=== PATIENT | female | born 1985 | race Caucasian/White ===

== ENCOUNTER 2022-08-31 09:24 | Emergency (ER) | payer MEDICAID, SELFPAY ==
[2022-08-31 09:55] VITALS: BP 136/80; PULSE 98; RESP 20; TEMP 37; O2SAT 100; BMI 16.4
--- NOTE | 2022-08-31 09:56 | EXP.UTC ---
Discharge Plan Disposition Patient Disposition: Home, Self-Care Condition: Good Prescriptions Prescriptions: New azithromycin [Zithromax] 250 mg tablet 250 mg PO UD DOSE PK Qty: 6 0RF Rx Instructions: Take two (2) tablets today, then one (1) tablet days #2 thru #5 benzonatate [benzonatate] 100 mg capsule 100 mg PO TIDP PRN (Reason: Cough) Qty: 30 0RF methylprednisolone 4 mg Tablets,Dose Pack 4 mg PO DIRECTED Qty: 21 0RF Referrals Follow up/Referrals: Provider,Referral, MD [Primary Care Provider] - See instructions Activity Restrictions/Add. Instructions Additional Instructions/Restrictions: Drink plenty of fluids. Take tylenol or ibuprofen for pain or fever. Take the medications as directed. Follow up with your regular doctor. GO TO THE ER FOR ANY WORSENING SYMPTOMS Clinical Impressions Clinical Impression: Acute bronchitis Stand Alone Forms Stand Alone Forms: Work/School Release Instructions Patient Instructions: DI for Acute Bronchitis Discharge ED Provider: Shaq Hinkle [facility] General Stated complaint: Chest Congestion Drainage Time Seen by Provider: 08/31/22 09:56 History of Present Illness Provider Complaint: She states that for the past 2 days she has had chest congestion, sinus congestion, and malaise. She denies any fever or chills. She has taken a home covid-19 test last night that was negative. She refuses a pcr covid-19 test here today. Related Data Previous Rx's Medication Instructions Recorded azithromycin 250 mg tablet 250 mg PO UD DOSE PK #6 tabs 08/31/22 (Zithromax) benzonatate 100 mg capsule 100 mg PO TIDP PRN Cough #30 caps 08/31/22 methylprednisolone 4 mg tablets in 4 mg PO DIRECTED #21 tabs 08/31/22 a dose pack Allergies Allergy/AdvReac Type Severity Reaction Status Date / Time Sulfa (Sulfonamide Allergy Mild Verified 08/31/22 10:02 Antibiotics) [facility] Disclaimer: The information contained in this section may have been updated after the patient was seen, as this information can be updated by other users. Social History Smoking Status: Never smoker alcohol intake: never current occupational status: employed Travel in the last 8 weeks: None ROS Obtained: Yes All systems reviewed & no additional complaints except as documented Constitutional Constitutional: Reports chills and Reports fever(s) Eyes Eyes: Denies eye discharge ENT Ears, Nose, Mouth, and Throat: Reports as per HPI Cardiovascular Cardiovascular: Denies chest pain Respiratory Respiratory: Denies chest congestion and Reports cough Gastrointestinal Gastrointestingal: Reports nausea; Denies abdominal pain, constipation, cramping, diarrhea or vomiting Musculoskeletal Musculoskeletal: Denies arthralgias Integumentary/Breasts Skin/Breast: Denies rash Neurologic Neurologic: Denies paresthesias Physical Exam General General appearance: alert and in no apparent distress Head Head exam: atraumatic, normocephalic and normal inspection Eye Eye exam: Present normal appearance, PERRL and EOMI ENT ENT exam: Present normal exam, normal oropharynx, mucous membranes moist, TM's normal bilaterally and normal external ear exam Neck Neck exam: Present normal inspection, full ROM and trachea midline; Absent meningismus or lymphadenopathy Chest Chest inspection: Present normal inspection and symmetric chest wall rise; Absent tenderness Respiratory Respiratory exam: Present normal lung sounds bilaterally; Absent respiratory distress Cardiovascular Cardiovascular exam: Present regular rate and normal rhythm; Absent JVD Abdominal Exam Abdominal exam: Present soft and normal bowel sounds; Absent distention, tenderness or guarding Extremities Exam Extremities exam: Present normal inspection, full ROM and normal capillary refill; Absent calf tenderness Back Exam Back exam: Present normal inspection; Absent
[2022-08-31 10:08] LABS: UTC Strep Screen (Rapid) Negative (Negative)
[2022-08-31 10:49] VITALS: BP 136/80; PULSE 98; RESP 20; TEMP 37; O2SAT 100
== END 2022-08-31 10:48 | disposition home or self-care (01) ==
PROVIDERS: Emergency Provider Nurse Practitioner Family
DX: J20.9 Acute bronchitis, unspecified (principal)
CPT/HCPCS: 87880; 99212; 99213; G0463

== ENCOUNTER 2025-06-10 19:49 | Emergency (ER) | payer MEDICAID, SELFPAY ==
--- NOTE | 2025-06-10 20:00 | ED_ITS ---
<Statement entered by Michael Cali MD - 06/11/25 12:20> I was consulted by the SARAH, and we discussed the complexity of the problems being addressed. I approve the treatment and management plan for this patient's care in the emergency department, thus performing a substantive portion of the medical decision making. Michael Cali MD Discharge Plan Prescriptions Prescriptions: No Action gabapentin 800 mg tablet PO Patient Comments: TAKE 1 TABLET BY MOUTH TWICE DAILY buprenorphine-naloxone 8-2 mg tablet, sublingual sublingual Patient Comments: PLACE 1/2 (ONE-HALF) TABLET UNDER THE TONGUE ONCE DAILY escitalopram oxalate 5 mg tablet PO Patient Comments: TAKE 1 TABLET BY MOUTH ONCE DAILY FOR ANXIETY amoxicillin 500 mg tablet 500 mg PO BID Qty: 20 0RF Referrals Follow up/Referrals: Celine Mortensen MD [Primary Care Provider, Family Practice] - See instructions Print Language Print Language: Luxembourgish Discharge ED Provider: Michael Cali General Adult HPI General Stated complaint: AO 06/10 Nail in Left Foot/ Nail not in foot Time Seen by Provider: 06/10/25 19:59 History of Present Illness HPI narrative: 39-year-old female presents to the ED today for complaint of stepping on a nail that went through her shoe into her foot. She did pull it out. She does need a tetanus shot. She has allergies to sulfa medicines. Related Data Home Medications ?Medication ?Instructions ?Recorded ?Confirmed buprenorphine 8 mg-naloxone 2 mg tab sublingual 05/15/25 sublingual tablet escitalopram oxalate 5 mg tablet mg PO 05/15/25 gabapentin 800 mg tablet mg PO 05/15/25 05/15/25 Previous Rx's ?Medication ?Instructions ?Recorded amoxicillin 500 mg tablet 500 mg PO BID #20 tabs 05/15 Allergies Allergy/AdvReac Type Severity Reaction Status Date / Time Sulfa (Sulfonamide Allergy Mild Unknown Verified 05/15/25 17:45 Antibiotics) allergy reaction [facility] Disclaimer: The information contained in this section may have been updated after the patient was seen, as this information can be updated by other users. Social History Smoking Status: Never smoker alcohol intake: never current occupational status: employed Travel in the last 8 weeks?: None ROS Obtained: Yes Systems reviewed as appropriate & no additional complaints except as documented Constitutional Constitutional: Reports as per HPI Physical Exam General General appearance: alert and in no apparent distress Head Head exam: normocephalic Eye Eye exam: Present PERRL and EOMI ENT ENT exam: Present normal oropharynx and mucous membranes moist Neck Neck exam: Present full ROM and trachea midline Respiratory Respiratory exam: Present normal lung sounds bilaterally Cardiovascular Cardiovascular exam: Present regular rate, normal rhythm, normal heart sounds, +S1 and +S2 Extremities Exam Extremities exam: Present full ROM and tenderness Neurological Exam Neurological exam: Present alert and oriented X3 Skin Skin exam: Present warm and dry Medical Decision Making Medical Records Screening: Per USPSTF and CDC recommendations, given the prevalence of disease in our region, it is our hospital?s policy to screen for HIV and viral Hepatitis for all patients aged 18 and over and those with ongoing risk factors. [place] Inquiry Pt receiving controlled substance: No [place] was queried for this patient: No Orders (Tests/Meds): ED MEDICATIONS Generic Name Dose Route Start Last Admin Trade Name Freq PRN Reason Stop Dose Admin Clindamycin HCl 300 mg 06/10/25 20:02 Clindamycin 150mg Capsule PO 06/10/25 20:03 ONCE ONE Tetanus/Reduced Diphtheria/Acell Pertussis 0.5 ml 06/10/25 19:59 Tet/Diphth/Pert-Adult 0.5ml Syringe IM 06/10/25 20:00 .ONCE ONE Medical Decision Narrative: patient is a 39-year-old female presenting to the emergency department for evaluation of stepping on a nail. Patient is hemodynamically stable and nontoxic-appearing upon arrival, afebrile. Differential diagnosis includes Pseudomonas infection, strep infection from the wound. Will give patient a tetanus shot and clindamycin. Wound will be cleaned out here in the ED. Patient will be sent home with antibiotic. Patient safe for discharge home. Critical Care Critical Care Time Critical Care Time: No
[2025-06-10 20:01] VITALS: BP 154/107; PULSE 95; RESP 18; TEMP 36.7; O2SAT 97; BMI 24.0
--- OUTSIDE RECORDS SUMMARY | 2025-06-10 20:10 | XMS_ITS | Encounter Summary ---
Author Organization [employer] ([place], [place], [place], [place], [place]) Address [address] [place] [address] Care Team Providers Care Coater Smoking Pipe Name Role Phone Unavailable Primary Care Provider Unavailabl e Encounter Details Date Type Department Care Team (Late st Contact Info) Description 08/29/2019 Transcribed Document [facility] [place] [facility] [place] [address] ProviderAwa MD [address] [place], [place] [id number] Social History Tobacco Use Types Packs/Day Years Used Date Smoking Tobacco: Never Assessed Comments Unknown Sex and Gender Information Value Date Recorded Sex Assigned at Not on file Legal Sex Female 6:47 PM CDT Gender Identity Not on file Sexual Orientation Not on file documented as of this encounter Miscellaneous Notes * Cerner Conversion Note - Historical ProviderMD - 08/29/2019 7:19 PM HOCKEY SCOUT Electronically signed by [facility], [facility] Conversion Truck Terminal Manager Cerner at 10/29/2022 5:00 PM CDT documented in this encounter Plan of Treatment Not on file documented as of this encounter Visit Diagnoses Not on filedocumented in this encounter
--- OUTSIDE RECORDS SUMMARY | 2025-06-10 20:10 | XMS_ITS | Encounter Summary ---
Author Organization [employer] ([place], [place], [place], [place], [place]) Address [address] [place] [address] Care Team Providers Care Superintendent Horticulture Name Role Phone Unavailable Primary Care Provider Unavailabl e Encounter Details Date Type Department Care Team (Late st Contact Info) Description 02/20/2020 Transcribed Document [facility] Family Medicine [facility] [place] [address] ProviderAwa MD [address] [place], [place] [id number] Social History Tobacco Use Types Packs/Day Years Used Date Smoking Tobacco: Never Assessed Comments Unknown Sex and Gender Information Value Date Recorded Sex Assigned at Not on file Legal Sex Female 6:47 PM CDT Gender Identity Not on file Sexual Orientation Not on file documented as of this encounter Miscellaneous Notes * Cerner Conversion Note - Historical ProviderMD - 02/20/2020 5:00 AM CDT Chart Check - Review Order Profile Entered On: 02/20/2020 3:14 EDT Performed On: 02/20/2020 5:00 EDT by MAREK ALMONTE RN Chart Check Powerplans Initiated/Discontinued as Appropriate : Yes All Active Orders Reviewed : Yes MAREK ALMONTE RN - 02/20/2020 3:14 EDT documented in this encounter Plan of Treatment Not on file documented as of this encounter Visit Diagnoses Not on filedocumented in this encounter
--- OUTSIDE RECORDS SUMMARY | 2025-06-10 20:10 | XMS_ITS | Clinical Summary ---
Author Organization [facility] Address [address] [place] [address] Care Team Providers Care Certified Scrum Master Name Role Phone Aneesh Smith MD, [place] Primary Care Provider [phone] Social History Tobacco Use Types Packs/Day Years Used Date Smoking Tobacco: Never Assessed Abuse Screen Answer Date Recorded Unsafe at Home or Work/School Not on file Feels Threatened by Someone? Not on file 05/2023 Does Anyone Keep You from Co ntacting Others or Doint Things Outside the Home? Not on file 04/20/2023 Physical Sign of Abuse Present Not on file 1 Housing Stability Answer Date Recorded Current Living Arrangements Not on file 04/10 Potentially Unsafe Housing Conditions Not on michelle e 04/20/2023 Family and Community Support Answer Tj e Recorded Help with Day-to-Day Activities Not on file 04/20/2023 Lonely or Isolated Not on file 04/20/2023 Employment Answer Date Recorded Do you want help finding or keeping work or a malini b? Not on file 04/20/2023 Disabilities Answer Date Recorded Concentrating, Remembering, or Making Decisions Difficulty Not on file 04/20/2023 Doing Errands Independently Difficulty Not on fi le 04/20/2023 Education Answer Date Recorded Help with school or training? Not on file Preferred Language Not on file 04/20/2023 Comments Unknown Sex and Gender Information Value Date Recorded Sex Assigned at Not on file Legal Sex Female 12:03 PM EDT Gender Identity Not on file Sexual Orientation Not on file Last Filed Vital Signs Vital Sign Reading Time Taken Comments Blood Pressure 110/76 06/04/2013 1:53 PM EST Pulse 80 06/04/2013 1:53 PM EST Temperature 36.6 C (97.8 F) 06/04/2013 1:53 PM EST Respiratory Rate - - Oxygen Saturation - - Inhaled Oxygen Concentration - - Weight 65.1 kg (143 lb 9.7 oz) 06/04/2013 1:53 P M EST Height 162.6 cm (5' 4 ) 06/04/2013 1:53 PM EST Body Mass Index 24.65 06/04/2013 1:53 PM EST Plan of Treatment Health Maintenance Due Date Last Done Comments Annual Gynecologic Pelvic an d Breast Exam 1985 ANNUAL PHYSICAL 09/09/2016 HEPATITIS C SCREENING 09/09/2016 INFLUENZA VACCINE 02/08/2025 07/26/2018 TDAP/TD VACCINES (2 - Td or Tdap) 11/06/2027 11/05/2017, 04/06/2007 Pneumococcal Vaccine 0-49 Aged Out No longer eligible based on patient's age to complete [place] [address] Care Teams Certified Scrum Master Relationship Specialty Start Date End Date Jada Melendrez MD [address] [facility] [address] [place], [place] [id number] PCP - General Family Medicine 08/30/16
--- OUTSIDE RECORDS SUMMARY | 2025-06-10 20:10 | XMS_ITS | Encounter Summary ---
Author Organization [employer] ([place], [place], [place], [place], [place]) Address [address] [place] [address] Care Team Providers Care Field Machinist Name Role Phone Unavailable Primary Care Provider Unavailabl e Encounter Details Date Type Department Care Team (Late st Contact Info) Description 02/16/2020 Transcribed Document [facility] [place] [facility] [address] ProviderAwa MD [address] [place], [place] [id number] Social History Tobacco Use Types Packs/Day Years Used Date Smoking Tobacco: Never Assessed Comments Unknown Sex and Gender Information Value Date Recorded Sex Assigned at Not on file Legal Sex Female 6:47 PM CDT Gender Identity Not on file Sexual Orientation Not on file documented as of this encounter Miscellaneous Notes * Cerner Conversion Note - Historical ProviderMD - 02/16/2020 5:43 PM CDT Admission Data, OB Entered On: 02/16/2020 17:48 EDT Performed On: 02/16/2020 17:43 EDT by MIGEL AC RN Advance Directive Patient has Advance Directive *Q : No, patient refuses Advance Directive information MIGEL AC RN - 02/16/2020 17:43 EDT Height and Weight Height Source : Stated Height Entry Format : [place] Height, Feet : 5 ft(Converted to: 152 cm, 60 Inch) Clinical Height : 162.56 cm Height, Inches : 4 Inch(Converted to: 0 ft 4 Inch, 10.16 cm) Weight Source : Standing scale Weight Entry Format : [place] Weight, Pounds : 204 lb Clinical Dosing Weight : 92.73 kg Body Surface Area (BSA) : 1.97 m2 Body Mass Index : 35.1 kg/m2 (HI) [place] Body Weight (IBW) : 54.3 kg MIGEL AC RN - 02/16/2020 17:43 EDT Health Histories Smoking Status : Never (less than 100 in lifetime; none in last 30 days) Smokeless Tobacco Status : Never MIGEL AC RN - 02/16/2020 17:43 EDT Social History (As Of: 02/16/2020 17:48:26 EDT) Gestational Age Gestational Age Person Gestational Age At : 39 weeks 3 days Method : Comment : Tetanus Immunization Status Previous Tetanus Immunizations : Previous Tetanus Immunizations tetanus/diphtheria/pertussis, acel(Tdap): 0.5 mL (11/05/17 16:10:00) Tetanus Immunization : Unknown MIGEL AC RN - 02/16/2020 17:43 EDT Influenza Vaccine Asmt, Adult Previous Vaccines from Immunization Schedule : Previous Vaccines and Immunizations tetanus/diphtheria/pertussis, acel(Tdap): 0.5 mL (11/05/17 16:10:00) Influenza Immunization, Current Season : Outside of influenza season MIGEL AC RN - 02/16/2020 17:43 EDT Pneumococcal Vaccine Previous Vaccines from Immunization Schedule : Previous Vaccines and Immunizations tetanus/diphtheria/pertussis, acel(Tdap): 0.5 mL (11/05/17 16:10:00) Pneumonia Immunization Received : No Pneumococcal Risk Assessment < Age 65 : None MIGEL AC RN - 02/16/2020 17:43 EDT Order Details Transport Mode Order Detail : Ambulatory Isolation Precautions Order Detail : Standard Precautions Order Detail : 1 IV Order Detail : 0 Oxygen Order Detail : 0 Nurse Collect Order Detail : 1 Lift/Transfer : Independent Central Line Order Detail : No Room Service : Appropriate Arterial Line : No MIGEL AC RN - 02/16/2020 17:43 EDT Vital Measurements Temperature Source : Oral Temperature Mode : Fahrenheit Temperature, Fahrenheit : 98.1 Deg F Clinical Temperature, C : 36.7 Deg C Pulse Method : Non-Invasive BP Device Pulse Source : Brachial, Right Peripheral Pulse Rate : 90 bpm Pulse Rhythm : Regular Respiratory Rate : 16 Breaths/Min Blood Pressure Location : Arm, right upper Blood Pressure Source : Non-Invasive BP Device Blood Pressure Position : Sitting Systolic Blood Pressure : 142 mmHg (HI) Diastolic Blood Pressure : 90 mmHg MIGEL AC RN - 02/16/2020 17:43 EDT Infectious Disease History Has the patient ever been tested for COVID-19? : Yes, Patient stated results Negative Date of COVID-19 test known? : Yes Date of COVID-19 Test : 02/14/2020 EDT Does patient have symptoms of COVID-19? : No COVID19 Screening : No Experiencing Infectious Disease Symptoms : No symptoms Physical contact outside [place] in the last 30 days : No Infectious Disease History : Chicken pox/Shingles, Herpes Tuberculosis Symptoms : None MIGEL AC RN - 02/16/2020 17:43 EDT [place] Suicide Severity Rating Scale (C-SSRS) CSSRS Past Month Wish to be : No CSSRS Past Month Suicidal Thoughts : No CSSRS Lifetime Suicide Behavior : No Suicide Severity Rating Score : 0 Suicide Severity Rating : No Additional Care Required at this time MIGEL AC RN - 02/16/2020 17:43 EDT documented in this encounter Plan of Treatment Not on file documented as of this encounter Visit Diagnoses Not on filedocumented in this encounter
--- OUTSIDE RECORDS SUMMARY | 2025-06-10 20:10 | XMS_ITS | Encounter Summary ---
Author Organization [employer] ([place], [place], [place], [place], [place]) Address [address] [place] [address] Care Team Providers Care Technical Support Manager Name Role Phone Unavailable Primary Care Provider Unavailabl e Encounter Details Date Type Department Care Team (Late st Contact Info) Description 02/19/2020 Transcribed Document [facility] [place] [facility] [address] ProviderAwa MD [address] [place], [place] [address] Social History Tobacco Use Types Packs/Day Years Used Date Smoking Tobacco: Never Assessed Comments Unknown Sex and Gender Information Value Date Recorded Sex Assigned at Not on file Legal Sex Female 6:47 PM CDT Gender Identity Not on file Sexual Orientation Not on file documented as of this encounter Miscellaneous Notes * Cerner Conversion Note - Historical ProviderMD - 02/19/2020 8:27 PM CDT Patient: ANDI ARTHUR Age: 34 years Sex: Female : 1985 Associated Diagnoses: None Author: HARRY WATKINS MD-CEMENT AND CONCRETE PLANT WORKER POD 1 s/p LTCS Mag x 24 hrs due to probable preeclampsia Doing well Good UO No klein vis ruq VSS afeb H/H 22.2 AST/ALT wnl Plt 130k Lungs CTA RRR Abd soft NT Inc CDI DTR's 1=+ Pt with signif bleeding PP HCT noted Pt started on 2u TF Will obs Check CBC after TF and in am documented in this encounter Plan of Treatment Not on file documented as of this encounter Visit Diagnoses Not on filedocumented in this encounter
--- OUTSIDE RECORDS SUMMARY | 2025-06-10 20:10 | XMS_ITS | Encounter Summary ---
Author Organization [employer] ([place], [place], [place], [place], [place]) Address [address] [place] [address] Care Team Providers Care Tray Room Worker Name Role Phone Unavailable Primary Care Provider Unavailabl e Encounter Details Date Type Department Care Team (Late st Contact Info) Description 02/20/2020 Transcribed Document [facility] [place] [facility] [place] [address] ProviderAwa MD [address] [place], [place] [address] Social History Tobacco Use Types Packs/Day Years Used Date Smoking Tobacco: Never Assessed Comments Unknown Sex and Gender Information Value Date Recorded Sex Assigned at Not on file Legal Sex Female 6:47 PM CDT Gender Identity Not on file Sexual Orientation Not on file documented as of this encounter Miscellaneous Notes * Cerner Conversion Note - Historical ProviderMD - 02/20/2020 7:30 PM CDT Pharmaceutical Physician Details Entered On: 02/20/2020 19:31 EDT Performed On: 02/20/2020 19:30 EDT by Yue Gao RN Order Details Transport Mode Order Detail : Ambulatory Isolation Precautions Order Detail : Standard Precautions Order Detail : 0 IV Order Detail : 0 Oxygen Order Detail : 0 Nurse Collect Order Detail : 0 Lift/Transfer : Independent Central Line Order Detail : No Room Service : Appropriate Arterial Line : No Yue Gao RN - 02/20/2020 19:30 EDT Electronically signed by Antionette Abad Conversion Community Service Technician Cerner at 10/29/2022 4:42 PM CDT documented in this encounter Plan of Treatment Not on file documented as of this encounter Visit Diagnoses Not on filedocumented in this encounter
--- OUTSIDE RECORDS SUMMARY | 2025-06-10 20:10 | XMS_ITS | Encounter Summary ---
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 Name Role Phone Unavailable Primary Care Provider Unavailabl e Encounter Details Date Type Department Care Team (Late st Contact Info) Description 08/29/2019 Transcribed Document [facility] [place] [facility] [place] [address] ProviderAwa MD [address] [place] [id number] Social History Tobacco Use Types Packs/Day Years Used Date Smoking Tobacco: Never Assessed Comments Unknown Sex and Gender Information Value Date Recorded Sex Assigned at Not on file Legal Sex Female 6:47 PM CDT Gender Identity Not on file Sexual Orientation Not on file documented as of this encounter Miscellaneous Notes * Cerner Conversion Note - Awa Woodard MD - 08/29/2019 7:22 PM 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 If you had special tests, such as EKG???s or X-rays, the interpretation of your tests given to you by the Emergency Department Physician is a preliminary report. Some fractures and illnesses fail to show up on preliminary tests. These will be reviewed again and we will call you if there are any new suggestions. If your symptoms continue notify your physician. After you leave, you should follow the instructions provided. What to do next Follow-Up Appointments Follow Up with HARRY WATKINS When 08/30/2019 10:20 AM EST Where: [address] [place], [place] [id number]- Business (1) Follow Up with Return to emergency department When Within As needed Comments Return if condition worsens, especially if you have increased pain, vaginal bleding, dizziness or vomiting, etc. Follow Up with ILIR BIRD When Within 2 to 3 days Where: [address] [place] [address]- Business (1) Allergies sulfa drugs Immunizations This Visit No Immunizations Found Medications What How Much When Instructions Next Dose The home medications listed are only as accurate as the information you provided. Please continue taking all of your medications prescribed by your Primary Care Provider unless specifically told to change or discontinue the medication. Please direct any questions regarding your home medications to your Primary Care Provider. Take your medications faithfully. Do NOT skip medication. Do NOT stop taking medications without the direction of a physician. Carry a list of your medications with you at all times, and take this medication list with you to your first follow up visit. Report any side effects. Avoid herbal remedies unless discussed with your physician. As part of your treatment plan, your physician may have prescribed a limited course of a controlled substance. This medication may be given to help people with moderate or severe pain or for other medical conditions, but there are risks involved with treatment. Common side effects may include nausea, constipation, drowsiness, sweating, itching, dry mouth, and rash. More serious side effects may include cognitive and motor impairment, like problems with thinking, concentrating, alertness, and movement (e.g. slowed reflexes), and driving and operating heavy machinery can be dangerous. It is important for you to talk to your physician if you have these side effects or questions. These controlled substances can produce physical dependence and be habit-forming if taken for an extended period of time, which means that the body has gotten used to them and may experience withdrawal symptoms if they are abruptly stopped. Withdrawal symptoms can include runny nose, sweating, goose bumps, diarrhea, abdominal cramping, rapid heartbeat, difficulty sleeping, and nervousness. Please dispose of unused and medications per pharmacy guidance. Test Results Laboratory or Other Results This Visit (last charted value for your 08/29/2019 visit) Hematology 08/29/2019 5:34 PM WBC: 11.3 K/uL -- Normal range between ( 3.9 and 10.0 ) RBC: 4.26 Million/uL -- Normal range between ( 3.93 and 5.22 ) Hct: 35.7 % -- Normal range between ( 34.1 and 44.9 ) Hgb: 12.4 Gram/dL -- Normal range between ( 11.2 and 15.7 ) Platelet Count: 273 K/uL -- Normal range between ( 163 and 369 ) MCH: 29.1 pg -- Normal range between ( 25.6 and 32.2 ) MCHC: 34.7 Gram/dL -- Normal range between ( 32.3 and 36.5 ) MCV: 83.8 fL -- Normal range between ( 79.0 and 94.8 ) Slide Review: No Eos %: 2.5 % -- Normal range between ( 1.0 and 7.0 ) [place] #: 0.83 K/uL -- Normal range between ( 0.24 and 0.82 ) Eos #: 0.28 K/uL -- Normal range between ( 0.04 and 0.54 ) [place] %: 7.4 % -- Normal range between ( 4.7 and 12.5 ) Baso %: 0.4 % -- Normal range between ( 0.0 and 1.0 ) Baso #: 0.04 K/uL -- Normal range between ( 0.01 and 0.08 ) RDW: 12.2 % -- Normal range between ( 11.6 and 14.4 ) Neut %: 69.5 % -- Normal range between ( 34.0 and 71.0 ) Neut #: 7.85 K/uL -- Normal range between ( 1.56 and 6.13 ) Lymph %: 19.9 % -- Normal range between ( 19.3 and 53.0 ) Lymph #: 2.24 K/uL -- Normal range between ( 1.18 and 3.74 ) MPV: 10.1 fL -- Normal range between ( 9.4 and 12.4 ) IG#: 0 x10(3)/uL IG%: 0 % -- Normal range between ( 0 and 1 ) Blood Bank 08/29/2019 5:46 PM ABO/Rh: O POS RhIg Product Ready: Not Indicated # of Vials: 0 General Chemistry 08/29/2019 5:34 PM Creatinine Level: 0.61 mg/dL -- Normal range between ( 0.55 and 1.02 ) Sodium Level: 136 mmol/L -- Normal range between ( 136 and 146 ) Potassium Level: 3.3 mmol/L -- Normal range between ( 3.5 and 5.1 ) Chloride Level: 106 mmol/L -- Normal range between ( 102 and 112 ) Carbon Dioxide Level: 23 mmol/L -- Normal range between ( 21 and 32 ) Anion Gap: 10 -- Normal range between ( 9 and 20 ) Bilirubin Total: 0.4 mg/dL -- Normal range between ( 0.2 and 1.3 ) A/G Ratio: 1.0 -- Normal range between ( 1.1 and 2.5 ) ALT: 16 Units/Liter -- Normal range between ( 12 and 78 ) AST: 11 Units/Liter -- Normal range between ( 5 and 37 ) Globulin: 3.4 Gram/dL -- Normal range between ( 1.5 and 4.5 ) Alk Phos: 58 Units/Liter -- Normal range between ( 27 and 136 ) Bun/Creatinine: 19.7 -- Normal range between ( 8.0 and 20.0 ) Calcium Level: 9.2 mg/dL -- Normal range between ( 8.5 and 10.1 ) eGFR : >60 mL/min/1.73m2 eGFR NonAfrican: >60 mL/min/1.73m2 Glucose Level: 102 mg/dL -- Normal range between ( 74 and 106 ) Blood Urea Nitrogen: 12 mg/dL -- Normal range between ( 7 and 22 ) Protein Total: 6.8 Gram/dL -- Normal range between ( 6.4 and 8.2 ) Albumin Level: 3.4 Gram/dL -- Normal range between ( 3.4 and 5.0 ) Education Materials Vaginal Bleeding During , First Trimester A small amount of bleeding from the vagina (spotting) is relatively common during early . It usually stops on its own. Various things may cause bleeding or spotting during early . Some bleeding may be related to the , and some may not. In many cases, the bleeding is normal and is not a problem. However, bleeding can also be a sign of something serious. Be sure to tell your health care provider about any vaginal bleeding right away. Some possible causes of vaginal bleeding during the first trimester include: ??? Infection or inflammation of the cervix. ??? Growths (polyps) on the cervix. ??? Miscarriage or threatened miscarriage. ??? tissue developing outside of the uterus (ectopic ). ??? A mass of tissue developing in the uterus due to an egg being fertilized incorrectly (molar ). Follow these instructions at home: Activity ??? Follow instructions from your health care provider about limiting your activity. Ask what activities are safe for you. ??? If needed, make plans for someone to help with your regular activities. ??? Do not have sex or orgasms until your health care provider says that this is safe. General instructions ??? Take [id number] and prescription medicines only as told by your health care provider. ??? Pay attention to any changes in your symptoms. ??? Do not use tampons or douche. ??? Write down how many pads you use each day, how often you change pads, and how soaked (saturated) they are. ??? If you pass any tissue from your vagina, save the tissue so you can show it to your health care provider. ??? Keep all follow-up visits as told by your health care provider. This is important. Contact a health care provider if: ??? You have vaginal bleeding during any part of your . ??? You have cramps or labor pains. ??? You have a fever. Get help right away if: ??? You have severe cramps in your back or abdomen. ??? You pass large clots or a large amount of tissue from your vagina. ??? Your bleeding increases. ??? You feel light-headed or weak, or you faint. ??? You have chills. ??? You are leaking fluid or have a gush of fluid from your vagina. Summary ??? A small amount of bleeding (spotting) from the vagina is relatively common during early . ??? Various things may cause bleeding or spotting in early . ??? Be sure to tell your health care provider about any vaginal bleeding right away. This information is not intended to replace advice given to you by your health care provider. Make sure you discuss any questions you have with your health care provider. Document Released: 04/06/2006 Document Revised: 09/29/2017 Document Reviewed: 09/29/2017 [employer] Patient Education ?? 2019 [employer] Activity Restriction During Your health care provider may recommend activity restriction during for a variety of reasons. Activity restriction may require that you limit activities such as exercise, lifting, sexual intercourse, or any other activity that requires great effort. The type of activity restrictions will vary for each person, depending on your risk or the problems you are having. Activity restrictions may be recommended for a period of time until your baby is delivered. Why is activity restriction recommended? Activity restriction may be recommended if: ??? Your placenta is partially or completely covering the opening of your cervix (placenta previa). ??? There is bleeding between the wall of the uterus and the amniotic sac in the first trimester of (subchorionic hemorrhage). ??? You went into labor too early ( labor). ??? You have a history of miscarriage. ??? You have a condition that causes high blood pressure during (preeclampsia or eclampsia). ??? You are with more than one baby. ??? Your baby is not growing well. What types of activity restrictions may be recommended? Based on your overall health and the health of your baby, your health care provider will decide which type of activity restriction is right for you. ??? Light restrictions. This type of restriction may include the following: ? Resting for one hour or less in bed or in a sitting position during the day. ? Not lifting anything heavier than 10 pounds. ? Avoiding activities that take a lot of physical effort. ??? Moderate restrictions. This type of restriction may include the following: ? Resting between 1 to 8 hours during daytime hours. ? Not lifting or straining. ? Limiting daily household activities such as cooking, cleaning, or laundry. ??? Strict restrictions. This type of restriction may include the following: ? Resting in a sitting position or lying down for the majority of the day. ? Not leaving the house except for visits related to health care. Pelvic rest may be recommended along with activity restrictions. If pelvic rest is recommended, then: ??? Do not have sex, an orgasm, or use sexual stimulation. ??? Do not use tampons. Do not douche. Do not put anything in your vagina. ??? Do not lift anything that is heavier than 10 lb (4.5 kg). ??? Avoid activities that require a lot of effort. ??? Avoid any activity in which your pelvic muscles could become strained, such as squatting. If your health care team recommends that you follow activity restrictions during your , you may need to have someone help with everyday activities. What are the risks? Health care providers no longer routinely recommend strict bed rest as there are physical and emotional risks associated with strict activity restrictions. These may include: ??? Loss of muscle conditioning. ??? Blood clots. ??? Social isolation. ??? Depression. ??? Loss of income. Discuss the risks and benefits of activity restrictions with your health care team to decide if it is best for you and your baby. Even if you are having problems during your , you may be able to continue with normal levels of activity with careful monitoring by your health care team. Questions to ask your health care provider ??? Why is my activity being limited? How will activity restrictions affect my body? Why is rest helpful for me and my baby? What activities can I do? When can I return to normal activities? When should I seek immediate medical care? Seek immediate medical care if you have: ??? Vaginal bleeding. ??? Vaginal discharge. ??? Cramping pain in your lower abdomen. ??? Regular contractions. ??? A low, dull backache. Summary ??? Your health care provider may recommend activity restriction during for a variety of reasons. ??? Activity restriction may require that you limit activities such as exercise, lifting, sexual intercourse, or any other activity that requires great effort. ??? Discuss the risks and benefits of activity restrictions with your health care team to decide if it is best for you and your baby. ??? Contact your health care provider right away if you think you are having contractions, or if you notice vaginal bleeding, discharge, cramping. This information is not intended to replace advice given to you by your health care provider. Make sure you discuss any questions you have with your health care provider. Document Released: 10/22/2011 Document Revised: 12/22/2017 Document Reviewed: 12/29/2015 [employer] Patient Education ?? 2019 [employer] Abdominal Pain During Abdominal pain is common during , and has many possible causes. Some causes are more serious than others, and sometimes the cause is not known. Abdominal pain can be a sign that labor is starting. It can also be caused by normal growth and stretching of muscles and ligaments during . Always tell your health care provider if you have any abdominal pain. Follow these instructions at home: ??? Do not have sex or put anything in your vagina until your pain goes away completely. ??? Get plenty of rest until your pain improves. ??? Drink enough fluid to keep your urine pale yellow. ??? Take [id number] and prescription medicines only as told by your health care provider. ??? Keep all follow-up visits as told by your health care provider. This is important. Contact a health care provider if: ??? Your pain continues or gets worse after resting. ??? You have lower abdominal pain that: ? Comes and goes at regular intervals. ? Spreads to your back. ? Is similar to menstrual cramps. ??? You have pain or burning when you urinate. Get help right away if: ??? You have a fever or chills. ??? You have vaginal bleeding. ??? You are leaking fluid from your vagina. ??? You are passing tissue from your vagina. ??? You have vomiting or diarrhea that lasts for more than 24 hours. ??? Your baby is moving less than usual. ??? You feel very weak or faint. ??? You have shortness of breath. ??? You develop severe pain in your upper abdomen. Summary ??? Abdominal pain is common during , and has many possible causes. ??? If you experience abdominal pain during , tell your health care provider right away. ??? Follow your health care provider's home care instructions and keep all follow-up visits as directed. This information is not intended to replace advice given to you by your health care provider. Make sure you discuss any questions you have with your health care provider. Document Released: 06/27/2006 Document Revised: 09/29/2017 Document Reviewed: 09/29/2017 [employer] Patient Education ?? 2019 [employer] Emergency Awareness and Preventative Care STROKE is an EMERGENCY Every Minute Counts Act FAST and Check for these signs: FACE Does the face look uneven? ARM Does one arm drift down? SPEECH Does their speech sound strange? TIME Call at any sign of stroke Stroke Risk Factors Atrial Fibrillation (irregular heartbeat) Diabetes Family history of stroke Heart Disease Heavy alcohol use High Blood Pressure High Cholesterol Physical inactivity and obesity Smoking Cigarette Smoking The facts are clear, cigarette smoking will shorten your life. Smoking can cause many illnesses along the way. As a healthcare provider, we recommend that you stop smoking. Assistance with quitting is available by contacting 4-535-PXPWNOW. This is a free resource providing counseling, support, and referral. Or you may contact your personal physician. [employer] Suicide Prevention Lifeline: The National Suicide Prevention Lifeline is a national network of local crisis centers that provides free and confidential emotional support to people in suicidal crisis or emotional distress 24 hours a day, 7 days a week. Don't Wait! Stop a Heart Attack Before it Starts What is a heart attack? A heart attack is damage or to a part of the heart from severely decreased or lack of blood flow to the heart. Over time, arteries can become narrow from the buildup of fat and cholesterol, which is called plaque. The plaque can rupture causing a blood clot to form. When the blood clot forms, the artery can become severely narrowed or completely blocked, causing a heart attack. Heart attack is the leading cause of in the [place]. 85% of muscle damage occurs within the first 2 hours. Delay in the recognition of heart attack symptoms increases the chances of . Know the early symptoms of a heart attack: Nausea Feeling of fullness in chest Jaw Pain Pain that travels down one or both arms Fatigue/being tired Anxiety Back Pain Chest pressure, squeezing, or discomfort Shortness of breath Sweating, or a cold sweat Feeling of impending doom There are unusual signs of a heart attack, too! Women, the elderly, and diabetics may present with atypical symptoms: Fainting/dizziness Weakness Confusion Risk Factors for a Heart Attack Some heart disease risk factors, such as age and family history, cannot be changed. Others, like smoking and lack of exercise, can be changed. Smoking High Cholesterol High Blood Pressure Family History Obesity Age Gender (Males are at higher risk) Lack of Exercise Diabetes Diet Stress Excessive Alcohol Intake If you or someone you know is experiencing the signs and symptoms of a heart attack, DON???T DELAY. Call immediately and seek help. If someone collapses, perform CPR! Do not attempt to drive if you are having symptoms of heart attack. Hands-Only CPR Why Hands-Only CPR? Hands-Only CPR has been shown to be as effective as conventional CPR for cardiac arrests that occur outside of a hospital. Survival depends on immediately receiving CPR from someone nearby. How do you perform Hands-Only CPR? There are two easy steps: Call if you see a teen or adult collapse Push hard and fast in the center of the chest at a beat of 100 beats per minute. Save a life! 4 WAYS TO GET AHEAD OF SEPSIS SEPSIS is a MEDICAL EMERGENCY. Time matters! Infections put you and your family at risk for a life-threatening condition called sepsis. Sepsis is the body's extreme response to an infection. It is life-threatening, and without timely treatment, sepsis can rapidly lead to tissue damage, organ failure, and . Sepsis happens when an infection you already have-in your skin, lungs, urinary tract or somewhere else-triggers a chain reaction throughout your body. 1 PREVENT INFECTIONS Take good care of chronic conditions. Talk to your doctor about getting the recommended vaccines. 2 PRACTICE GOOD HYGIENE Wash your hands frequently. Keep cuts or open sores clean and covered until they are healed. 3 KNOW THE SYMPTOMS Confusion or disorientation Shortness of breath High heart rate Fever, shivering, or feeling very cold Extreme pain or discomfort Clammy or sweaty skin 4 ACT FAST Get medical care IMMEDIATELY if you suspect sepsis or if you have an infection that is not getting better or is getting worse. To learn more about sepsis and how to prevent infections, visit www.cdc.gov/sepsis. The examination and treatment you have received in the Emergency Department has been done to provide an appropriate evaluation and stabilizing treatment on an emergency basis only. Given the limited resources, it is not meant to be a substitute for complete medical care. The follow-up doctor you named will receive a copy of your records and all test reports. IT IS IMPORTANT THAT YOU SCHEDULE A FOLLOW-UP APPOINTMENT AND ARE RE-EVALUATED. You should report any new complaints, symptoms, or remaining problems at that time. IT IS IMPOSSIBLE FOR THE EMERGENCY DEPARTMENT TO RECOGNIZE AND TREAT ALL ELEMENTS OF INJURY OR ILLNESS IN A SINGLE VISIT. If you have been referred to a specialist physician, it means that we believe you may have a condition that requires the expertise of a specialist. These physicians work in partnership with the hospital and have agreed to see referred patients in their office for further evaluation. KEEP IN MIND THAT THE SPECIALIST HAS HIS/HER OWN OFFICE POLICIES WHICH MAY REQUIRE PROPER INSURANCE OR PAYMENT UP FRONT BEFORE THE SPECIALIST WILL SEE YOU. It is your responsibility to call the specialist physician to make an appointment. We do not have the ability to refer patients to specialists/physicians that work with specific insurance companies. Please be advised that all financial charges or billing practices are determined by that practice, not the hospital. If your insurance company requires that you see a specialist from their approved list, it is your responsibility to contact your insurance company to make those arrangements. It is also your responsibility to follow any other requirements of your insurance company necessary to obtain coverage for claims submitted. We will bill your insurance; however, you are responsible today for any co-pay amounts. You will receive a separate bill for any services you may have received including: emergency, radiology, or pathology physicians. Patient Name:ANDI ARTHUR I have received this information and was given the opportunity to ask questions. Patient/Aviation Safety Inspector Name: Patient/Aviation Safety Inspector Signature: Relationship to Patient: Clinician/Hospital Aviation Safety Inspector Signature: Please Provide a Telephone Number Where You Can Be Reached: Is it Permissible To Leave a Message? Date: documented in this encounter Plan of Treatment Not on file documented as of this encounter Visit Diagnoses Not on filedocumented in this encounter
--- OUTSIDE RECORDS SUMMARY | 2025-06-10 20:10 | XMS_ITS | Encounter Summary ---
Author Organization [employer] ([place], [place], [place], [place], [place]) Address [address] [place] [address] Care Team Providers Care Interpretative Dancer Name Role Phone Unavailable Primary Care Provider Unavailabl e Encounter Details Date Type Department Care Team (Late st Contact Info) Description 02/20/2020 Transcribed Document [facility] [place] [facility] [place] [address] ProviderAwa MD [address] [place], [place] [id number] Social History Tobacco Use Types Packs/Day Years Used Date Smoking Tobacco: Never Assessed Comments Unknown Sex and Gender Information Value Date Recorded Sex Assigned at Not on file Legal Sex Female 6:47 PM CDT Gender Identity Not on file Sexual Orientation Not on file documented as of this encounter Miscellaneous Notes * Cerner Conversion Note - Awa ProviderMD - 02/20/2020 6:00 AM CDT Pain Assessment Entered On: 02/20/2020 6:11 EDT Performed On: 02/20/2020 6:33 EDT by MAREK ALMONTE RN Intervention Information: ibuprofen Performed by MAREK ALMONTE RN on 02/20/2020 05:33:00 EDT ibuprofen,800mg Oral Pain Assessment Pain Improved by Intervention : Yes MAREK ALMONTE RN - 02/20/2020 6:11 EDT documented in this encounter Plan of Treatment Not on file documented as of this encounter Visit Diagnoses Not on filedocumented in this encounter
--- OUTSIDE RECORDS SUMMARY | 2025-06-10 20:10 | XMS_ITS | Encounter Summary ---
Author Organization [employer] ([place], [place], [place], [place], [place]) Address [address] [place] [address] Care Team Providers Care Switchboard Operator Receptionist Name Role Phone Unavailable Primary Care Provider Unavailabl e Encounter Details Date Type Department Care Team (Late st Contact Info) Description 02/20/2020 Transcribed Document [facility] [place] [facility] [place] [address] ProviderAwa MD [address] [place], [place] [phone] Social History Tobacco Use Types Packs/Day Years Used Date Smoking Tobacco: Never Assessed Comments Unknown Sex and Gender Information Value Date Recorded Sex Assigned at Not on file Legal Sex Female 6:47 PM CDT Gender Identity Not on file Sexual Orientation Not on file documented as of this encounter Miscellaneous Notes * Cerner Conversion Note - Historical ProviderMD - 02/20/2020 1:05 PM CDT Patient: ANDI CARRASCO Age: 34 Years Sex: Female : 1985 Chief Complaint: PO PP Day #2, s/p primary c/s for arrest of labor and prolonged second stage of labor Subjective Pt has no c/o today, denies s/s PPH or PPD. Pt states she is breast feeding and states baby is doing well. Pt states she is ambulating and voiding without difficulty and states her pain is well controlled. Pt states she is feeling much better today and after blood transfusion Review of Systems VSS, Afebrile H&H 8.6/24.7 s/p TF PLTS 150 Objective Vitals & Measurements HR: 88(Monitored) RR: 18 BP: 130/79 General: Pt is AA&Ox4, in NAD, wd/wn, responds appropriately Breast: soft, non tender Cardiovascular: RRR without gallop or rub Lungs: CTA, b/l A&P Abdomen: soft, mildly tender over incision, palpable fibroid on right lateral to umbilicus Ext: MAEW, no peripheral edema Incision/Episiotomy/Lac: Assessment/Plan PO PP Day #2, will continue current POC Arrested active phase of labor O62.1 Breast feeding status of mother Z39.1 delivery delivered O82 Leiomyoma of uterus D25.9 Postoperative anemia due to acute blood loss D62 Single live Z37.0 Data (X) NICU (_) Medications Inpatient aluminum hydroxide/magnesium hydroxide/simethicone 200 mg-200 mg-20 mg/5 mL oral suspension, 30 mL, Oral, Q4H, PRN Ambien, 5 mg= 1 Tab, Oral, At Bedtime, PRN calcium gluconate + Sodium Chloride 0.9% intravenous solution 50 mL Colace, 100 mg= 1 Cap, Oral, TID [id number] 1,000 mL, 1000 mL, IntraVENous Dulcolax Laxative, 10 mg= 1 Supp, Rectal, BID, PRN Hemabate, 250 mcg= 1 mL, IntraMuscular, 1-Time, PRN hydrocortisone-pramoxine 1%-1% rectal cream, 1 Application, Rectal, Q4H, PRN ibuprofen, 800 mg= 2 Tab, Oral, Q8H Lactated Ringers Injection intravenous solution 1,000 mL, 1000 mL, IntraVENous lanolin topical ointment, 1 Application, Topical, See Comment, PRN magnesium sulfate injection 20 Gram [2 Gram/hr] + Premix Diluent 500 mL measles/mumps/rubella virus vaccine, 0.5 mL, SubCutaneous, 1-Time, PRN Methergine, 0.2 mg= 1 mL, IntraMuscular, 1-Time, PRN Mylicon, 80 mg= 1 Tab, Chew, TID Neurontin, 300 mg= 1 Cap, Oral, At Bedtime Normal Saline Flush, 10 mL, IV Push, Q8H Normal Saline Flush, 10 mL, IV Push, See Comment, PRN oxyCODONE, 5 mg= 1 Tab, Oral, Q6H, PRN Pepcid, 20 mg= 1 Tab, Oral, Q12H, PRN Multivitamins oral tablet, 1 Tab, Oral, Daily tetanus/diphth/pertuss (Tdap) adult/adol, 0.5 mL, IntraMuscular, 1-Time, PRN Tylenol, 1000 mg= 2 Tab, Oral, Q6H Zofran, 8 mg= 4 mL, IV Push, Q8H, PRN Zofran, 4 mg= 2 mL, IV Push, Q4H, PRN Home 1 oral capsule, 1 Cap, Oral, Daily Valtrex 500 mg oral tablet, Oral, Daily Problem List/Past Medical History Ongoing No chronic problems Historical No qualifying data Lab Results FEB 19 04:00 \ L 8.6 / H 17.2 L 150 / L 24.7 \ documented in this encounter Plan of Treatment Not on file documented as of this encounter Visit Diagnoses Not on filedocumented in this encounter
--- OUTSIDE RECORDS SUMMARY | 2025-06-10 20:10 | XMS_ITS | Encounter Summary ---
Author Organization [employer] ([place], [place], [place], [place], [place]) Address [address] [place] [address] Care Team Providers Care Motor Lodge Clerk Name Role Phone Unavailable Primary Care Provider Unavailabl e Encounter Details Date Type Department Care Team (Late st Contact Info) Description 02/20/2020 Transcribed Document [facility] [place] [facility] [place] [address] ProviderAwa MD [address] [place], [place] [phone] Social History Tobacco Use Types Packs/Day Years Used Date Smoking Tobacco: Never Assessed Comments Unknown Sex and Gender Information Value Date Recorded Sex Assigned at Not on file Legal Sex Female 6:47 PM CDT Gender Identity Not on file Sexual Orientation Not on file documented as of this encounter Miscellaneous Notes * Cerner Conversion Note - Historical ProviderMD - 02/20/2020 10:00 PM CDT Pain Assessment Entered On: 02/21/2020 6:26 EDT Performed On: 02/20/2020 23:22 EDT by Yue Gao RN Intervention Information: ibuprofen Performed by Yue Gao RN on 02/20/2020 22:22:00 EDT ibuprofen,800mg Oral Pain Assessment Pain Assessment : Follow-up assessment Pain Scale Used : 0-10 Scale Yue Gao RN - 02/21/2020 6:25 EDT Pain Scale Intensity : 0 Yue Gao RN - 02/21/2020 6:25 EDT Image 4 - Images currently included in the form version of this document have not been included in the text rendition version of the form. documented in this encounter Plan of Treatment Not on file documented as of this encounter Visit Diagnoses Not on filedocumented in this encounter
--- OUTSIDE RECORDS SUMMARY | 2025-06-10 20:10 | XMS_ITS | Clinical Summary ---
Author Organization [employer] ([place], [place], [place], [place], [place]) Address [address] [place] [address] Care Team Providers Care Fruit Coordinator Name Role Phone Unavailable Primary Care Provider Unavailabl e Social History Tobacco Use Types Packs/Day Years Used Date Smoking Tobacco: Never Assessed Comments Unknown Sex and Gender Information Value Date Recorded Sex Assigned at Not on file Legal Sex Female 6:47 PM CDT Gender Identity Not on file Sexual Orientation Not on file Plan of Treatment Health Maintenance Due Date Last Done Comments Depression Screening (12+) 1997 Tobacco Cessation Counseling and Screening (12+) 1997 Pap Smear 06/12/2022 06/12/2019 COVID-19 VACCINE (2024-2 6 season) 2025 01/01/2021 Influenza Vaccine (#1) 2025 DTAP/TDAP/TD VACCINES (3 - T d or Tdap) 11/06/2027 11/05/2017, 04/06/2007 Pneumococcal Vaccine: 0-49 Years Aged Out No longer eligible b ased on patient's age to complete this topic Procedures Procedure Name Priority Date/Time Associated Diagnosis Comments PAP SMEAR, THIN PREP (MCT BKR) AP Routine 06/12/2019 12:00 AM EST from Last 3 Months or Most Recently Relevant to Health Maintenance Results * Pap Smear, Thin Prep (06/12/2019 12:00 AM EST) Vaginal/Cervical/ Endocervical OTHER / Unknown us Historical Provider PATHOLOGY/CYTOLOGY ORDERA BLES Final Result [facility] from Last 3 Months or Most Recently Relevant to Health Maintenance Insurance [facility] MEDICAID
--- OUTSIDE RECORDS SUMMARY | 2025-06-10 20:10 | XMS_ITS | Encounter Summary ---
Author Organization [employer] ([place], [place], [place], [place], [place]) Address [address] [place] [address] Care Team Providers Care Compounding And Finishing Supervisor Name Role Phone Unavailable Primary Care Provider Unavailabl e Encounter Details Date Type Department Care Team (Late st Contact Info) Description 02/21/2020 Transcribed Document [facility] [place] [facility] [place] [address] ProviderAwa MD [address] [place] [id number] Social History Tobacco Use Types Packs/Day Years Used Date Smoking Tobacco: Never Assessed Comments Unknown Sex and Gender Information Value Date Recorded Sex Assigned at Not on file Legal Sex Female 6:47 PM CDT Gender Identity Not on file Sexual Orientation Not on file documented as of this encounter Miscellaneous Notes * Cerner Conversion Note - Historical ProviderMD - 02/21/2020 5:21 PM CDT Nursing Discharge Summary Entered On: 02/21/2020 17:22 EDT Performed On: 02/21/2020 17:21 EDT by JOE MARADIAGA RN Discharge Documentation Discharge Date/Time : 02/21/2020 17:10 EDT Patient Disposition, General : Discharge Discharge To : Home with ambulatory/outpatient follow-up Mode Of Departure, General Discharge : Wheelchair Accompanied By, Discharge : Other: family IV Discontinued : Yes Personal Belongings With Patient : Yes Pt's Own Supply of Medications Returned : No Prescriptions Given to Patient : Yes Medications Given to Patient : No Teaching Method : Explanation, Printed materials Teaching Evaluation : Verbalizes understanding JOE MARADIAGA RN - 02/21/2020 17:21 EDT Electronically signed by Jenniffer [facility] Conversion Transit Survey Worker Cerner at 10/29/2022 4:41 PM CDT documented in this encounter Plan of Treatment Not on file documented as of this encounter Visit Diagnoses Not on filedocumented in this encounter
--- OUTSIDE RECORDS SUMMARY | 2025-06-10 20:10 | XMS_ITS | Encounter Summary ---
Author Organization [employer] ([place], [place], [place], [place], [place]) Address [address] [place] [address] Care Team Providers Care Coverage Specialist Name Role Phone Unavailable Primary Care Provider Unavailabl e Encounter Details Date Type Department Care Team (Late st Contact Info) Description 02/20/2020 Transcribed Document [facility] [place] [facility] [address] ProviderAwa MD [address] [place], [place] [id number] Social History Tobacco Use Types Packs/Day Years Used Date Smoking Tobacco: Never Assessed Comments Unknown Sex and Gender Information Value Date Recorded Sex Assigned at Not on file Legal Sex Female 6:47 PM CDT Gender Identity Not on file Sexual Orientation Not on file documented as of this encounter Miscellaneous Notes * Cerner Conversion Note - Awa ProviderMD - 02/20/2020 1:37 PM CDT UM Authorization Entered On: 02/20/2020 13:38 EDT Performed On: 02/20/2020 13:37 EDT by Maira Krishnan Rn-Utilization Review Primary Insurance Authorization Authorization and Policy Numbers : Insurance 1 Health Plan: [employer] Policy Number: [id number] Authorization Number: [id number] Insurance Primary Name : [employer] Policy Number: [id number] Authorization Status-Primary : Admit approved Reference Number-Primary : [id number] Authorization Number-Primary : [id number] Authorized Service Begin Date-Primary : 02/16/2020 EDT Authorization Comments-Primary : Faxed continuing stay clinicals to [employer] Historical Authorization Comments-Primary : Comment 1: Clinicals faxed via [employer] (Maira Krishnan Rn-Utilization Review 02/20/2020 10:49) Comment 2: Auth inititaed on Availity. Admit approved certified in total (Maira Krishnan Rn-Utilization Review 02/18/2020 09:27) Maira Krishnan Rn-Utilization Review - 02/20/2020 13:37 EDT documented in this encounter Plan of Treatment Not on file documented as of this encounter Visit Diagnoses Not on filedocumented in this encounter
--- OUTSIDE RECORDS SUMMARY | 2025-06-10 20:10 | XMS_ITS | Encounter Summary ---
Author Organization [employer] ([place], [place], [place], [place], [place]) Address [address] [place] [address] Care Team Providers Care Stock Shaper Name Role Phone Unavailable Primary Care Provider Unavailabl e Encounter Details Date Type Department Care Team (Late st Contact Info) Description 02/20/2020 Transcribed Document [facility] [place] [facility] [place] [address] ProviderAwa MD [address] [place], [place] [phone] Social History Tobacco Use Types Packs/Day Years Used Date Smoking Tobacco: Never Assessed Comments Unknown Sex and Gender Information Value Date Recorded Sex Assigned at Not on file Legal Sex Female 6:47 PM CDT Gender Identity Not on file Sexual Orientation Not on file documented as of this encounter Miscellaneous Notes * Cerner Conversion Note - Historical ProviderMD - 02/20/2020 9:09 PM CDT Pain Assessment Entered On: 02/21/2020 6:26 EDT Performed On: 02/20/2020 23:22 EDT by Yue Gao RN Intervention Information: oxyCODONE Performed by Yue Gao RN on 02/20/2020 22:22:00 EDT oxyCODONE,10mg Oral,Pain (Severe 7-10) Pain Assessment Pain Assessment : Follow-up assessment Pain Scale Used : 0-10 Scale Yue Gao RN - 02/21/2020 6:25 EDT Pain Scale Intensity : 0 Yue aGo RN - 02/21/2020 6:25 EDT Image 4 - Images currently included in the form version of this document have not been included in the text rendition version of the form. Electronically signed by Antionette [employer] Conversion Hydrogen Braze Furnace Operator Cerner at 10/29/2022 5:04 PM CDT documented in this encounter Plan of Treatment Not on file documented as of this encounter Visit Diagnoses Not on filedocumented in this encounter
--- OUTSIDE RECORDS SUMMARY | 2025-06-10 20:10 | XMS_ITS | Encounter Summary ---
Author Organization [employer] ([place], [place], [place], [place], [place]) Address [address] [place] [address] Care Team Providers Care Electronics Utility Worker Name Role Phone Unavailable Primary Care Provider Unavailabl e Encounter Details Date Type Department Care Team (Late st Contact Info) Description 02/20/2020 Transcribed Document [facility] [place] [address] ProviderAwa MD [address] [place], [place] [phone] Social History Tobacco Use Types Packs/Day Years Used Date Smoking Tobacco: Never Assessed Comments Unknown Sex and Gender Information Value Date Recorded Sex Assigned at Not on file Legal Sex Female 6:47 PM CDT Gender Identity Not on file Sexual Orientation Not on file documented as of this encounter Miscellaneous Notes * [employer]ner Conversion Note - Historical ProviderMD - 02/20/2020 12:00 AM CDT Synchro Assembler Details Entered On: 02/20/2020 0:00 EDT Performed On: 02/20/2020 0:00 EDT by MAREK ALMONTE RN Order Details Transport Mode Order Detail : Ambulatory Isolation Precautions Order Detail : Standard Precautions Order Detail : 0 IV Order Detail : 0 Oxygen Order Detail : 0 Nurse Collect Order Detail : 0 Lift/Transfer : Independent Central Line Order Detail : No Room Service : Appropriate Arterial Line : No MAREK ALMONTE RN - 02/20/2020 0:00 EDT documented in this encounter Plan of Treatment Not on file documented as of this encounter Visit Diagnoses Not on filedocumented in this encounter
--- OUTSIDE RECORDS SUMMARY | 2025-06-10 20:10 | XMS_ITS | Referral Summary ---
Author Organization [employer] ([place], [place], [place], [place], [place]) Address [address] [place] [address] Care Team Providers Care Engineered Wood Designer Name Role Phone Unavailable Primary Care Provider Unavailabl e Social History Tobacco Use Types Packs/Day Years Used Date Smoking Tobacco: Never Assessed Comments Unknown Sex and Gender Information Value Date Recorded Sex Assigned at Not on file Legal Sex Female 6:47 PM CDT Gender Identity Not on file Sexual Orientation Not on file Plan of Treatment Not on file Procedures Procedure Name Priority Date/Time Associated Diagnosis Comments PAP SMEAR, THIN PREP (MCT BKR) AP Routine 06/12/2019 12:00 AM EST from Last 3 Months or Most Recently Relevant to Health Maintenance Results * Pap Smear, Thin Prep (06/12/2019 12:00 AM EST) Vaginal/Cervical/ Endocervical OTHER / Unknown Historical Provider MD PATHOLOGY/CYTOLOGY ORDERA BLES Final Result [facility] from Last 3 Months or Most Recently Relevant to Health Maintenance Insurance [employer]
--- OUTSIDE RECORDS SUMMARY | 2025-06-10 20:10 | XMS_ITS | Encounter Summary ---
Author Organization [employer] ([place], [place], [place], [place], [place]) Address [address] [place] [address] Care Team Providers Care Sprayer Insecticide Name Role Phone Unavailable Primary Care Provider Unavailabl e Encounter Details Date Type Department Care Team (Late st Contact Info) Description 02/19/2020 Transcribed Document [facility] [place] [facility] [place] [address] ProviderAwa MD [address] [place], [place] [phone] Social History Tobacco Use Types Packs/Day Years Used Date Smoking Tobacco: Never Assessed Comments Unknown Sex and Gender Information Value Date Recorded Sex Assigned at Not on file Legal Sex Female 6:47 PM CDT Gender Identity Not on file Sexual Orientation Not on file documented as of this encounter Miscellaneous Notes * [employer]ner Conversion Note - Historical ProviderMD - 02/19/2020 10:00 PM CDT Pain Assessment Entered On: 02/20/2020 3:13 EDT Performed On: 02/19/2020 22:15 EDT by MAREK ALMONTE RN Intervention Information: ibuprofen Performed by MAREK ALMONTE RN on 02/19/2020 21:15:00 EDT ibuprofen,800mg Oral Pain Assessment Pain Improved by Intervention : Yes MAREK ALMONTE RN - 02/20/2020 3:13 EDT documented in this encounter Plan of Treatment Not on file documented as of this encounter Visit Diagnoses Not on filedocumented in this encounter
--- OUTSIDE RECORDS SUMMARY | 2025-06-10 20:10 | XMS_ITS | Encounter Summary ---
Author Organization [facility] ([place], [place], [place], [place], [place]) Address [address] [place] [address] Care Team Providers Care Script Manager Name Role Phone Unavailable Primary Care Provider Unavailabl e Encounter Details Date Type Department Care Team (Late st Contact Info) Description 02/21/2020 Transcribed Document [facility] [place] [facility] [place] [address] ProviderAwa MD [address] [place] [address] Social History Tobacco Use Types Packs/Day Years Used Date Smoking Tobacco: Never Assessed Comments Unknown Sex and Gender Information Value Date Recorded Sex Assigned at Not on file Legal Sex Female 6:47 PM CDT Gender Identity Not on file Sexual Orientation Not on file documented as of this encounter Miscellaneous Notes * Cerner Conversion Note - Awa Woodard MD - 02/21/2020 11:53 AM CDT Patient Education Materials Follows: Choosing to breastfeed is one of the best decisions you can make for yourself and your baby. A change in hormones during causes your breasts to make breast milk in your milk-producing glands. Hormones prevent breast milk from being released before your baby is born. They also prompt milk flow after . Once has begun, thoughts of your baby, as well as his or her sucking or crying, can stimulate the release of milk from your milk-producing glands. Benefits of Research shows that offers many health benefits for infants and mothers. It also offers a cost-free and convenient way to feed your baby. For your baby ??? Your first milk (colostrum) helps your baby's digestive system to function better. ??? Special cells in your milk (antibodies) help your baby to fight off infections. ??? Breastfed babies are less likely to develop asthma, allergies, obesity, or type 2 diabetes. They are also at lower risk for sudden syndrome (SIDS). ??? Nutrients in breast milk are better able to meet your baby?s needs compared to infant formula. ??? Breast milk improves your baby's brain development. For you ??? helps to create a very special harris between you and your baby. ??? is convenient. Breast milk costs nothing and is always available at the correct temperature. ??? helps to burn calories. It helps you to lose the weight that you gained during . ??? makes your uterus return faster to its size before . It also slows bleeding (lochia) after you give . ??? helps to lower your risk of developing type 2 diabetes, osteoporosis, rheumatoid arthritis, cardiovascular disease, and breast, ovarian, uterine, and endometrial cancer later in life. basics Starting ??? Find a comfortable place to sit or lie down, with your neck and back well-supported. ??? Place a pillow or a rolled-up blanket under your baby to bring him or her to the level of your breast (if you are seated). Nursing pillows are specially designed to help support your arms and your baby while you breastfeed. ??? Make sure that your baby's tummy (abdomen) is facing your abdomen. ??? Gently massage your breast. With your fingertips, massage from the outer edges of your breast inward toward the nipple. This encourages milk flow. If your milk flows slowly, you may need to continue this action during the feeding. ??? Support your breast with 4 fingers underneath and your thumb above your nipple (make the letter C with your hand). Make sure your fingers are well away from your nipple and your baby?s mouth. ??? Stroke your baby's lips gently with your finger or nipple. ??? When your baby's mouth is open wide enough, quickly bring your baby to your breast, placing your entire nipple and as much of the areola as possible into your baby's mouth. The areola is the colored area around your nipple. ? More areola should be visible above your baby's upper lip than below the lower lip. ? Your baby's lips should be opened and extended outward (flanged) to ensure an adequate, comfortable latch. ? Your baby's tongue should be between his or her lower gum and your breast. ??? Make sure that your baby's mouth is correctly positioned around your nipple (latched). Your baby's lips should create a seal on your breast and be turned out (everted). ??? It is common for your baby to suck about 2?3 minutes in order to start the flow of breast milk. Latching Teaching your baby how to latch onto your breast properly is very important. An improper latch can cause nipple pain, decreased milk supply, and poor weight gain in your baby. Also, if your baby is not latched onto your nipple properly, he or she may swallow some air during feeding. This can make your baby fussy. Burping your baby when you switch breasts during the feeding can help to get rid of the air. However, teaching your baby to latch on properly is still the best way to prevent fussiness from swallowing air while . Signs that your baby has successfully latched onto your nipple ??? Silent tugging or silent sucking, without causing you pain. Infant's lips should be extended outward (flanged). ??? Swallowing heard between every 3?4 sucks once your milk has started to flow (after your let-down milk reflex occurs). ??? Muscle movement above and in front of his or her ears while sucking. Signs that your baby has not successfully latched onto your nipple ??? Sucking sounds or smacking sounds from your baby while . ??? Nipple pain. If you think your baby has not latched on correctly, slip your finger into the corner of your baby?s mouth to break the suction and place it between your baby's gums. Attempt to start again. Signs of successful Signs from your baby ??? Your baby will gradually decrease the number of sucks or will completely stop sucking. ??? Your baby will fall asleep. ??? Your baby's body will relax. ??? Your baby will retain a small amount of milk in his or her mouth. ??? Your baby will let go of your breast by himself or herself. Signs from you ??? Breasts that have increased in firmness, weight, and size 1?3 hours after feeding. ??? Breasts that are softer immediately after . ??? Increased milk volume, as well as a change in milk consistency and color by the fifth day of . ??? Nipples that are not sore, cracked, or bleeding. Signs that your baby is getting enough milk ??? Wetting at least 1?2 diapers during the first 24 hours after . ??? Wetting at least 5?6 diapers every 24 hours for the first week after . The urine should be clear or pale yellow by the age of 5 days. ??? Wetting 6?8 diapers every 24 hours as your baby continues to grow and develop. ??? At least 3 stools in a 24-hour period by the age of 5 days. The stool should be soft and yellow. ??? At least 3 stools in a 24-hour period by the age of 7 days. The stool should be seedy and yellow. ??? No loss of weight greater than 10% of weight during the first 3 days of life. ??? Average weight gain of 4?7 oz (113?198 g) per week after the age of 4 days. ??? Consistent daily weight gain by the age of 5 days, without weight loss after the age of 2 weeks. After a feeding, your baby may spit up a small amount of milk. This is normal. frequency and duration Frequent feeding will help you make more milk and can prevent sore nipples and extremely full breasts (breast engorgement). Breastfeed when you feel the need to reduce the fullness of your breasts or when your baby shows signs of hunger. This is called on demand. Signs that your baby is hungry include: ??? Increased alertness, activity, or restlessness. ??? Movement of the head from side to side. ??? Opening of the mouth when the corner of the mouth or cheek is stroked (rooting). ??? Increased sucking sounds, smacking lips, cooing, sighing, or squeaking. ??? Oven-jm-uudrg movements and sucking on fingers or hands. ??? Fussing or crying. Avoid introducing a pacifier to your baby in the first 4-6 weeks after your baby is born. After this time, you may choose to use a pacifier. Research has shown that pacifier use during the first year of a baby's life decreases the risk of sudden syndrome (SIDS). Allow your baby to feed on each breast as long as he or she wants. When your baby unlatches or falls asleep while feeding from the first breast, offer the second breast. Because newborns are often sleepy in the first few weeks of life, you may need to awaken your baby to get him or her to feed. times will vary from baby to baby. However, the following rules can serve as a guide to help you make sure that your baby is properly fed: ??? Newborns (babies 4 weeks of age or younger) may breastfeed every 1?3 hours. ??? Newborns should not go without for longer than 3 hours during the day or 5 hours during the night. ??? You should breastfeed your baby a minimum of 8 times in a 24-hour period. Breast milk pumping Pumping and storing breast milk allows you to make sure that your baby is exclusively fed your breast milk, even at times when you are unable to breastfeed. This is especially important if you go back to work while you are still , or if you are not able to be present during feedings. Your industrial rehabilitation consultant can help you find a method of pumping that works best for you and give you guidelines about how long it is safe to store breast milk. Caring for your breasts while you breastfeed Nipples can become dry, cracked, and sore while . The following recommendations can help keep your breasts moisturized and healthy: ??? Avoid using soap on your nipples. ??? Wear a supportive bra designed especially for nursing. Avoid wearing underwire-style bras or extremely tight bras (sports bras). ??? Air-dry your nipples for 3?4 minutes after each feeding. ??? Use only cotton bra pads to absorb leaked breast milk. Leaking of breast milk between feedings is normal. ??? Use lanolin on your nipples after . Lanolin helps to maintain your skin's normal moisture barrier. Pure lanolin is not harmful (not toxic) to your baby. You may also hand express a few drops of breast milk and gently massage that milk into your nipples and allow the milk to air-dry. In the first few weeks after giving , some women experience breast engorgement. Engorgement can make your breasts feel heavy, warm, and tender to the touch. Engorgement peaks within 3?5 days after you give . The following recommendations can help to ease engorgement: ??? Completely empty your breasts while or pumping. You may want to start by applying warm, moist heat (in the shower or with warm, water-soaked hand towels) just before feeding or pumping. This increases circulation and helps the milk flow. If your baby does not completely empty your breasts while , pump any extra milk after he or she is finished. ??? Apply ice packs to your breasts immediately after or pumping, unless this is too uncomfortable for you. To do this: ? Put ice in a plastic bag. ? Place a towel between your skin and the bag. ? Leave the ice on for 20 minutes, 2?3 times a day. ??? Make sure that your baby is latched on and positioned properly while . If engorgement persists after 48 hours of following these recommendations, contact your health care provider or a industrial rehabilitation consultant. Overall health care recommendations while ??? Eat 3 healthy meals and 3 snacks every day. Well-nourished mothers who are need an additional 450?500 calories a day. You can meet this requirement by increasing the amount of a balanced diet that you eat. ??? Drink enough water to keep your urine pale yellow or clear. ??? Rest often, relax, and continue to take your vitamins to prevent fatigue, stress, and low vitamin and mineral levels in your body (nutrient deficiencies). ??? Do not use any products that contain nicotine or tobacco, such as cigarettes and e-cigarettes. Your baby may be harmed by chemicals from cigarettes that pass into breast milk and exposure to secondhand smoke. If you need help quitting, ask your health care provider. ??? Avoid alcohol. ??? Do not use illegal drugs or marijuana. ??? Talk with your health care provider before taking any medicines. These include zmwz-ihn-eqgkjqg and prescription medicines as well as vitamins and herbal supplements. Some medicines that may be harmful to your baby can pass through breast milk. ??? It is possible to become while . If control is desired, ask your health care provider about options that will be safe while your baby. Where to find more information: [employer]: www.llli.org Contact a health care provider if: ??? You feel like you want to stop or have become frustrated with . ??? Your nipples are cracked or bleeding. ??? Your breasts are red, tender, or warm. ??? You have: ? Painful breasts or nipples. ? A swollen area on either breast. ? A fever or chills. ? Nausea or vomiting. ? Drainage other than breast milk from your nipples. ??? Your breasts do not become full before feedings by the fifth day after you give . ??? You feel sad and depressed. ??? Your baby is: ? Too sleepy to eat well. ? Having trouble sleeping. ? More than 1 week old and wetting fewer than 6 diapers in a 24-hour period. ? Not gaining weight by 5 days of age. ??? Your baby has fewer than 3 stools in a 24-hour period. ??? Your baby's skin or the white parts of his or her eyes become yellow. Get help right away if: ??? Your baby is overly tired (lethargic) and does not want to wake up and feed. ??? Your baby develops an unexplained fever. Summary ??? offers many health benefits for and mothers. ??? Try to breastfeed your when he or she shows early signs of hunger. ??? Gently tickle or stroke your baby's lips with your finger or nipple to allow the baby to open his or her mouth. Bring the baby to your breast. Make sure that much of the areola is in your baby's mouth. Offer one side and burp the baby before you offer the other side. ??? Talk with your health care provider or industrial rehabilitation consultant if you have questions or you face problems as you breastfeed. This information is not intended to replace advice given to you by your health care provider. Make sure you discuss any questions you have with your health care provider. Document Released: 06/27/2006 Document Revised: 09/21/2018 Document Reviewed: 07/29/2017 Elsevier Patient Education ? 2020 [employer] Care After Delivery This sheet gives you information about how to care for yourself from the time you deliver your baby to up to 6?12 weeks after delivery ( period). Your health care provider may also give you more specific instructions. If you have problems or questions, contact your health care provider. Follow these instructions at home: Medicines ??? Take ybwn-ruz-noyvzhc and prescription medicines only as told by your health care provider. ??? If you were prescribed an antibiotic medicine, take it as told by your health care provider. Do not stop taking the antibiotic even if you start to feel better. ??? Ask your health care provider if the medicine prescribed to you: ? Requires you to avoid driving or using heavy machinery. ? Can cause constipation. You may need to take actions to prevent or treat constipation, such as: ? Drink enough fluid to keep your urine pale yellow. ? Take iqrp-rrj-kgdwnhz or prescription medicines. ? Eat foods that are high in fiber, such as beans, whole grains, and fresh fruits and vegetables. ? Limit foods that are high in fat and processed sugars, such as fried or sweet foods. Activity ??? Gradually return to your normal activities as told by your health care provider. ??? Avoid activities that take a lot of effort and energy (are strenuous) until approved by your health care provider. Walking at a slow to moderate pace is usually safe. Ask your health care provider what activities are safe for you. ? Do not lift anything that is heavier than your baby or 10 lb (4.5 kg) as told by your health care provider. ? Do not vacuum, climb stairs, or drive a car for as long as told by your health care provider. ??? If possible, have someone help you at home until you are able to do your usual activities yourself. ??? Rest as much as possible. Try to rest or take naps while your baby is sleeping. Vaginal bleeding ??? It is normal to have vaginal bleeding (lochia) after delivery. Wear a sanitary pad to absorb vaginal bleeding and discharge. ? During the first week after delivery, the amount and appearance of lochia is often similar to a menstrual period. ? Over the next few weeks, it will gradually decrease to a dry, yellow-brown discharge. ? For most women, lochia stops completely by 4?6 weeks after delivery. Vaginal bleeding can vary from woman to woman. ??? Change your sanitary pads frequently. Watch for any changes in your flow, such as: ? A sudden increase in volume. ? A change in color. ? Large blood clots. ??? If you pass a blood clot, save it and call your health care provider to discuss. Do not flush blood clots down the toilet before you get instructions from your health care provider. ??? Do not use tampons or douches until your health care provider says this is safe. ??? If you are not , your period should return 6?8 weeks after delivery. If you are , your period may return anytime between 8 weeks after delivery and the time that you stop . Perineal care ??? If your ( section) was unplanned, and you were allowed to labor and push before delivery, you may have pain, swelling, and discomfort of the tissue between your vaginal opening and your anus (perineum). You may also have an incision in the tissue (episiotomy) or the tissue may have torn during delivery. Follow these instructions as told by your health care provider: ? Keep your perineum clean and dry as told by your health care provider. Use medicated pads and pain-relieving sprays and creams as directed. ? If you have an episiotomy or vaginal tear, check the area every day for signs of infection. Check for: ? Redness, swelling, or pain. ? Fluid or blood. ? Warmth. ? Pus or a bad smell. ? You may be given a squirt bottle to use instead of wiping to clean the perineum area after you go to the bathroom. As you start healing, you may use the squirt bottle before wiping yourself. Make sure to wipe gently. ? To relieve pain caused by an episiotomy, vaginal tear, or hemorrhoids, try taking a warm sitz bath 2?3 times a day. A sitz bath is a warm water bath that is taken while you are sitting down. The water should only come up to your hips and should cover your buttocks. Breast care ??? Within the first few days after delivery, your breasts may feel heavy, full, and uncomfortable (breast engorgement). You may also have milk leaking from your breasts. Your health care provider can suggest ways to help relieve breast discomfort. Breast engorgement should go away within a few days. ??? If you are : ? Wear a bra that supports your breasts and fits you well. ? Keep your nipples clean and dry. Apply creams and ointments as told by your health care provider. ? You may need to use breast pads to absorb milk leakage. ? You may have uterine contractions every time you breastfeed for several weeks after delivery. Uterine contractions help your uterus return to its normal size. ? If you have any problems with , work with your health care provider or a industrial rehabilitation consultant. ??? If you are not : ? Avoid touching your breasts as this can make your breasts produce more milk. ? Wear a well-fitting bra and use cold packs to help with swelling. ? Do not squeeze out (express) milk. This causes you to make more milk. Intimacy and sexuality ??? Ask your health care provider when you can engage in sexual activity. This may depend on your: ? Risk of infection. ? Healing rate. ? Comfort and desire to engage in sexual activity. ??? You are able to get after delivery, even if you have not had your period. If desired, talk with your health care provider about methods of family planning or control (contraception). Lifestyle ??? Do not use any products that contain nicotine or tobacco, such as cigarettes, e-cigarettes, and chewing tobacco. If you need help quitting, ask your health care provider. ??? Do not drink alcohol, especially if you are . Eating and drinking ??? Drink enough fluid to keep your urine pale yellow. ??? Eat high-fiber foods every day. These may help prevent or relieve constipation. High-fiber foods include: ? Whole grain cereals and breads. ? Brown rice. ? Beans. ? Fresh fruits and vegetables. ??? Take your vitamins until your checkup or until your health care provider tells you it is okay to stop. General instructions ??? Keep all follow-up visits for you and your baby as told by your health care provider. Most women visit their health care provider for a checkup within the first 3?6 weeks after delivery. Contact a health care provider if you: ??? Feel unable to cope with the changes that a new baby brings to your life, and these feelings do not go away. ??? Feel unusually sad or worried. ??? Have breasts that are painful, hard, or turn red. ??? Have a fever. ??? Have trouble holding urine or keeping urine from leaking. ??? Have little or no interest in activities you used to enjoy. ??? Have not breastfed at all and you have not had a menstrual period for 12 weeks after delivery. ??? Have stopped and you have not had a menstrual period for 12 weeks after you stopped . ??? Have questions about caring for yourself or your baby. ??? Pass a blood clot from your vagina. Get help right away if you: ??? Have chest pain. ??? Have difficulty breathing. ??? Have sudden, severe leg pain. ??? Have severe pain or cramping in your abdomen. ??? Bleed from your vagina so much that you fill more than one sanitary pad in one hour. Bleeding should not be heavier than your heaviest period. ??? Develop a severe headache. ??? Faint. ??? Have blurred vision or spots in your vision. ??? Have a bad-smelling vaginal discharge. ??? Have thoughts about hurting yourself or your baby. If you ever feel like you may hurt yourself or others, or have thoughts about taking your own life, get help right away. You can go to your nearest emergency department or call: ??? Your local emergency services (911 in the [place] ??? A suicide crisis helpline, such as the National Suicide Prevention Lifeline at . This is open 24 hours a day. Summary ??? The period of time from when you deliver your baby to up to 6?12 weeks after delivery is called the period. ??? Gradually return to your normal activities as told by your health care provider. ??? Keep all follow-up visits for you and your baby as told by your health care provider. This information is not intended to replace advice given to you by your health care provider. Make sure you discuss any questions you have with your health care provider. Document Released: 06/24/2001 Document Revised: 02/14/2019 Document Reviewed: 02/14/2019 [employer] Patient Education ? 2019 [employer] documented in this encounter Plan of Treatment Not on file documented as of this encounter Visit Diagnoses Not on filedocumented in this encounter
--- OUTSIDE RECORDS SUMMARY | 2025-06-10 20:10 | XMS_ITS | Encounter Summary ---
Author Organization [employer] ([place], [place], [place], [place], [place]) Address [address] [place] [address] Care Team Providers Care Fur Blowing Machine Attendant Name Role Phone Unavailable Primary Care Provider Unavailabl e Encounter Details Date Type Department Care Team (Late st Contact Info) Description 02/18/2020 Transcribed Document [facility] [place] [facility] [address] ProviderAwa MD [address] [place] [address] [id number] Social History Tobacco Use Types Packs/Day Years Used Date Smoking Tobacco: Never Assessed Comments Unknown Sex and Gender Information Value Date Recorded Sex Assigned at Not on file Legal Sex Female 6:47 PM CDT Gender Identity Not on file Sexual Orientation Not on file documented as of this encounter Miscellaneous Notes * Cerner Conversion Note - Historical ProviderMD - 02/18/2020 3:35 AM CDT Patient: ANDI ARTHUR Age: 34 Years Sex: Female : 1985 *Operation PRIMARY LOW TRANSVERSE CSECTION Indication for Surgery PT PRESENTED AT 39.3WKS TO LABOR AND DELIVERY WITH ELEVATED BP. NORMAL PREECLAMPSIA LABS BUT CONT TO HAVE ELEVATED BLOOD PRESSURES SO INDUCTION OF LABOR STARTED. SHE RECEIVED 3 DOSES OF CYTOTEC AND PITOCIN. SHE WAS NOTED TO HAVE POLYHYDRAMNIOS AT THE TIME OF AROM. HER BLOOD PRESSURES REMAINED 130-150 AFTER THE EPIDURAL, WITH ONE SEVERE BP 170'. SHE PROGRESSED TO 8CM BUT ARRESTED X 7HOURS WITH A DYSFUNCTIONAL LABOR PATTERN WITH INADEQUATE CONTRACTIONS DESPITE MAXIMUM PITOCIN. SHE DEVELOPED A FEVER AND WAS STARTED ON AMP/GENT/TYLENOL 1 HOUR PRIOR TO DECISION FOR CSECTION. *Preoperative Diagnosis 39.5WKS ARREST OF ACTIVE LABOR GESTATIONAL HYPERTENSION FIBROID UTERUS POLYHYDRAMNIOS *Postoperative Diagnosis SAME, DELIVERED DIRECT OCCIPUT POSTERIOR ATONIC UTERUS *Surgeon(s) WILLIE GROVE-DR ARLENE MEJIA *Procedure Narrative PROCEDURE IN DETAIL: The patient was taken to the operating room. She was prepared and draped in a normal sterile fashion in a dorsal supine position with a leftward tilt. The anesthesia was found to be adequate. A Pfannenstiel skin incision was made and carried through to the underlying layer of fascia with the scalpel. The fascia was then incised in the midline and extended laterally BLUNTLY. The superior aspects of the fascial incision was grasped with the Mark clamps, elevated, and the underlying rectus muscles were sharply. The rectus muscles were then in the midline as was the peritoneum bluntly with good visualization of the bladder. THERE MAS A COPIOUS OF LIGHT YELLOW PERITONEAL FLUID The Devonte self-retaining retractor was then placed intra-abdominally. The lower uterine segment was identified and the bladder flap was created sharply with the Metzenbaum scissors. The lower uterine segment was then incised in the midline and extended cephalocaudal fashion bluntly. The 's head was then delivered atraumatically. The cord was clamped x2 and cut after a 30 second delay. The was handed off to the awaiting pediatric team. The cord blood was sent to the laboratory. The placenta was spontaneously delivered, grossly intact. The uterus was not exteriorized from the abdomen, but it was cleared of all clots and debris. The uterine incision was closed with 0 Monocryl in a double layer and excellent hemostasis was noted. The vesicouterine peritoneum was reapproximated and the Devonte retractor removed from the abdomen. The abdomen was copiously irrigated and cleared of all clots and debris. The peritoneum was reapproximated with the rectus muscle with 2-0 stratafix monocryl in continuous fashion. The fascia was closed with 0 Stratafix PDS and the skin with 3-0 Monocryl in a subcuticular fashion. The patient tolerated the procedure well. All counts were correct and she was taken to recovery room in stable condition. Drains/Packs Used NONE Anesthesia EPIDURAL *Estimated Blood Loss 700ML Urine Output CONCENTRATED *Findings LIVE MALE INFANT, CLEAR FLUID W TERMINAL MECONIUM. DIRECT OP POSITION NORMAL TUBES/OVARIES MULTIPLE SMALL FIBROIDS. LARGE FIBROIDS-RIGHT FUNDAL INTRAMURAL X2, LEFT CORNUA PEDUNCTULATED. RIGHT LOWER UTERINE SEGMENT INTRAMURAL 2CM ABOVE INCISION. *Specimen(s) PLACENTA Complications NONE Date of Service No qualifying data available. documented in this encounter Plan of Treatment Not on file documented as of this encounter Visit Diagnoses Not on filedocumented in this encounter
--- OUTSIDE RECORDS SUMMARY | 2025-06-10 20:10 | XMS_ITS | Encounter Summary ---
Author Organization [employer] ([place], [place], [place], [place], [place]) Address [address] [place] [address] Care Team Providers Care Marketing Traffic Manager Name Role Phone Unavailable Primary Care Provider Unavailabl e Encounter Details Date Type Department Care Team (Late st Contact Info) Description 02/18/2020 Transcribed Document [facility] [place] [address] [place] [address] ProviderAwa MD [address] [place], [place] [address] Social History Tobacco Use Types Packs/Day Years Used Date Smoking Tobacco: Never Assessed Comments Unknown Sex and Gender Information Value Date Recorded Sex Assigned at Not on file Legal Sex Female 6:47 PM CDT Gender Identity Not on file Sexual Orientation Not on file documented as of this encounter Miscellaneous Notes * Cerner Conversion Note - Awa ProviderMD - 02/18/2020 9:27 AM CDT UM Authorization Entered On: 02/18/2020 9:28 EDT Performed On: 02/18/2020 9:27 EDT by Maira Krishnan Rn-Utilization Review Primary Insurance Authorization Authorization and Policy Numbers : Insurance 1 Health Plan: [employer]ICA[employer] Policy Number: [id number] Authorization Number: Insurance Primary Name : [employer]ICA[employer] Policy Number: [id number] Authorization Status-Primary : Admit approved Reference Number-Primary : [id number] Authorization Number-Primary : [id number] Authorized Service Begin Date-Primary : 02/16/2020 EDT Authorization Comments-Primary : Auth inititaed on Availity. Admit approved certified in total Historical Authorization Comments-Primary : No Authorization Comments Found Maira Krishnan Rn-Utilization Review - 02/18/2020 9:27 EDT documented in this encounter Plan of Treatment Not on file documented as of this encounter Visit Diagnoses Not on filedocumented in this encounter
--- OUTSIDE RECORDS SUMMARY | 2025-06-10 20:10 | XMS_ITS | Encounter Summary ---
Author Organization [employer] ([place], [place], [place], [place], [place]) Address [address] [place] [address] Care Team Providers Care Lacquer Sizer Name Role Phone Unavailable Primary Care Provider Unavailabl e Encounter Details Date Type Department Care Team (Late st Contact Info) Description 02/20/2020 Transcribed Document [facility] [place] [facility] [place] [address] ProviderAwa MD [address] [place], [place] [id number] Social History Tobacco Use Types Packs/Day Years Used Date Smoking Tobacco: Never Assessed Comments Unknown Sex and Gender Information Value Date Recorded Sex Assigned at Not on file Legal Sex Female 6:47 PM CDT Gender Identity Not on file Sexual Orientation Not on file documented as of this encounter Miscellaneous Notes * Cerner Conversion Note - Awa ProviderMD - 02/20/2020 12:00 AM CDT Pain Assessment Entered On: 02/20/2020 3:14 EDT Performed On: 02/20/2020 0:31 EDT by MAREK ALMONTE RN Intervention Information: acetaminophen Performed by MAREK ALMONTE RN on 02/19/2020 23:31:00 EDT acetaminophen,1000mg Oral Pain Assessment Pain Improved by Intervention : Yes MAREK ALMONTE RN - 02/20/2020 3:13 EDT documented in this encounter Plan of Treatment Not on file documented as of this encounter Visit Diagnoses Not on filedocumented in this encounter
--- OUTSIDE RECORDS SUMMARY | 2025-06-10 20:10 | XMS_ITS | Encounter Summary ---
Author Organization [employer] ([place], [place], [place], [place], [place]) Address [address] [place] [address] Care Team Providers Care General Utility Worker Name Role Phone Unavailable Primary Care Provider Unavailabl e Encounter Details Date Type Department Care Team (Late st Contact Info) Description 08/29/2019 Transcribed Document [facility] [place] [facility] [address] ProviderAwa MD [address] [place] [address] [id number] Social History Tobacco Use Types Packs/Day Years Used Date Smoking Tobacco: Never Assessed Comments Unknown Sex and Gender Information Value Date Recorded Sex Assigned at Not on file Legal Sex Female 6:47 PM CDT Gender Identity Not on file Sexual Orientation Not on file documented as of this encounter Miscellaneous Notes * Cerner Conversion Note - Historical ProviderMD - 08/29/2019 7:14 PM ELECTRICAL CAD TECHNICIAN Patient: ANDI ARTHUR Age: 33 years Sex: Female : 1985 Associated Diagnoses: Abdominal pain in ; Threatened miscarriage; Vaginal bleeding in Author: RENEE RIZVI MD-EMR Basic Information Time seen: Date & time 08/29/2019 19:05:00. History source: Patient. Arrival mode: Private vehicle, walking. History limitation: None. Additional information: Chief Complaint from Nursing Triage Note : Chief Complaint 08/29/2019 17:31 EST Chief Complaint pt 15 wks preg, , hx fibroids, states had so spotting today light red, not soaked a pad yet, c/o light cramping, . History of Present Illness The patient presents with pelvic pain and vaginal bleeding. The onset was just prior to arrival. The course/duration of symptoms is resolved. Character of pain: cramping. Bleeding: Spotting. Status : 1, Para: 0 15 weeks. The exacerbating factor is none. The relieving factor is none. Risk factors consist of none. Prior episodes: none. Therapy today: see nurses notes. Associated symptoms: denies nausea, denies vomiting, denies fever, denies chills, denies abdominal pain, denies back pain and denies dysuria. Patient is 1 para 0, 15 weeks , complain of noticed vaginal spotting, and mild pelvic cramping earlier today, patient does admit to having sex earlier today, patient feels her pain is resolved, denies any further vaginal bleeding, denies any urinary symptoms, no chest pain, no shortness of breath, no dizziness, patient has history of uterine fibroids. Patient said she did not have any problem with her so far, was seen by her RADIOLOGICAL ENGINEER Dr. Harry Siddiqui's 4 weeks ago, had a normal OB ultrasound. Review of Systems Constitutional symptoms: No fever, no chills, no decreased activity. Skin symptoms: No rash, no pruritus, no lyman, no petechiae, no lesion. Eye symptoms: No recent vision problems, no pain, no discharge. ENMT symptoms: No ear pain, no sore throat, no nasal congestion. Respiratory symptoms: No shortness of breath, no cough. Cardiovascular symptoms: No chest pain, no diaphoresis, no peripheral edema. Gastrointestinal symptoms: No abdominal pain, no nausea, no vomiting, no diarrhea. Genitourinary symptoms: Vaginal bleeding, no dysuria, no hematuria, no vaginal discharge. Musculoskeletal symptoms: No back pain, no Muscle pain, no Joint pain. Neurologic symptoms: No headache, no dizziness, no altered level of consciousness. Psychiatric symptoms: No anxiety, no depression. Endocrine symptoms: No polyuria, Hematologic/Lymphatic symptoms: Bleeding tendency negative, Allergy/immunologic symptoms: No seasonal allergies, Additional review of systems information: No recent travel or surgery. No Abx recently. No change in meds recently No history of trauma or injury Denies IVDA . Health Status Allergies: Allergic Reactions (Selected) Severity Not Documented Sulfa drugs- No reactions were documented.. Medications: (Selected) Prescriptions Prescribed Lyndon 5 mg-325 mg oral tablet: 1 Tab, Oral, Q4H, PRN: for pain, 15 Tab, 0 Refill(s) etodolac 400 mg oral tablet: 1 Tab, Oral, BID, for 10 Day(s), 20 Tab, 0 Refill(s). Immunizations: Per nurse's notes. history: 15 weeks, 1, para 0. Past Medical/ Family/ Social History Medical history Reviewed as documented in chart. Genitourinary: History of uterine fibroids. Surgical history: No active procedure history items have been selected or recorded., Reviewed as documented in chart. Family history: No family history items have been selected or recorded., Reviewed as documented in chart. Social history: Social & Psychosocial Habits No Data Available , Reviewed as documented in chart. Problem list: Active Problems (1) No Chronic Problems , per nurse's notes. Physical Examination Vital Signs Vital Signs/Vital Measures 08/29/2019 17:31 EST Systolic Blood Pressure 115 mmHg Diastolic Blood Pressure 55 mmHg LOW Temperature Source Oral Temperature Mode Fahrenheit Temperature, Fahrenheit 97.8 Deg F Clinical Temperature, C 36.6 Deg C Peripheral Pulse Rate 81 bpm Respiratory Rate 18 Breaths/Min Oxygen Saturation 100 % Oxygen Therapy Mode Room air . Measurements 08/29/2019 17:31 EST Height Source Stated Height Entry Format [place] Height/Length, [place] (ft) 5 ft Height/Length [place] 4 Inch CLINICALHEIGHT 162.56 cm [place] Body Weight 54.3 kg Weight Source, ED Critical estimated dosing weight Weight Entry Format [place] Weight [place] lb 155 lb CLINICALWEIGHT 70.45 kg Body Surface Area (BSA) 1.76 m2 Body Mass Index 26.7 kg/m2 HI . Oxygen Saturation 08/29/2019 17:31 EST Oxygen Saturation 100 % . General: Alert, no acute distress. Skin: Warm, dry, pink, intact, no pallor, no rash, not cyanotic, not cool, not pale. Head: Normocephalic, atraumatic. Neck: Supple. Eye: Normal conjunctiva. Ears, nose, mouth and throat: Oral mucosa moist, no pharyngeal erythema or exudate, Hearing unchanged. Cardiovascular: Regular rate and rhythm, No murmur, Normal peripheral perfusion, No edema, no cardiac rub, no click. Respiratory: Lungs are clear to auscultation, respirations are non-labored, breath sounds are equal, Symmetrical chest wall expansion. Chest wall: No tenderness, No deformity. Back: Nontender, Normal range of motion, Normal alignment, no step-offs. Musculoskeletal: Normal ROM, normal strength, no tenderness, no swelling, no deformity. Gastrointestinal: Soft, Nontender, Non distended, Guarding: Negative, Rebound: Negative, Bowel sounds: Normal, Organomegaly: Negative, Trauma: Negative, Mass: Negative, Signs: None. Genitourinary: Pt refused pelvic exam.. Neurological: Alert and oriented to person, place, time, and situation, No focal neurological deficit observed, CN II-XII intact, normal motor observed, normal speech observed, normal coordination observed. Lymphatics: No lymphadenopathy. Psychiatric: Cooperative, appropriate mood & affect, normal judgment. Medical Decision Making Differential Diagnosis: Threatened , spontaneous , incomplete , urinary tract infection, ovarian cyst, uterine fibroids. Documents reviewed: Emergency department nurses' notes. Results review: Lab results : Lab Results 08/29/2019 17:46 EST ABO/Rh O POS RhIg Product Ready Not Indicated # of Vials 0 08/29/2019 17:34 EST Sodium Level 136 mmol/L Potassium Level 3.3 mmol/L LOW Chloride Level 106 mmol/L Carbon Dioxide Level 23 mmol/L Anion Gap 10 Glucose Level 102 mg/dL Blood Urea Nitrogen 12 mg/dL Creatinine Level 0.61 mg/dL eGFR >60 mL/min/1.73m2 eGFR NonAfrican >60 mL/min/1.73m2 Bun/Creatinine 19.7 Calcium Level 9.2 mg/dL Protein Total 6.8 Gram/dL Albumin Level 3.4 Gram/dL Globulin 3.4 Gram/dL A/G Ratio 1.0 LOW Bilirubin Total 0.4 mg/dL Alk Phos 58 Units/Liter AST 11 Units/Liter ALT 16 Units/Liter WBC 11.3 K/uL HI RBC 4.26 Million/uL Hgb 12.4 Gram/dL Hct 35.7 % MCV 83.8 fL MCH 29.1 pg MCHC 34.7 Gram/dL Platelet Count 273 K/uL MPV 10.1 fL RDW 12.2 % Neut % 69.5 % Neut # 7.85 K/uL HI Lymph % 19.9 % Lymph # 2.24 K/uL [place] % 7.4 % [place] # 0.83 K/uL HI Eos % 2.5 % Eos # 0.28 K/uL Baso % 0.4 % Baso # 0.04 K/uL Slide Review No IG# 0 x10(3)/uL IG% 0 % . Reexamination/ Reevaluation Notes: Discussed with patient her labs results, differential diagnoses of her symptoms, advised patient to do ultrasound, patient feels better her pain is gone, bleeding is stopped, patient thinks she overreacted, patient has an appointment to see Dr. Harry Siddiqui at 1020 in the morning, patient wants to go home, she will return to the ED for pain or bleeding get worse, patient was given specific instructions to return . Impression and Plan Diagnosis Abdominal pain in - Discharge, Emergency medicine, Medical Threatened miscarriage - Discharge, Emergency medicine, Medical Vaginal bleeding in - Discharge, Emergency medicine, Medical Plan Condition: Improved, Stable. Disposition: Discharged Admit/Transfer/Discharge: Discharge (Order): Start: 08/29/2019 19:19 EST, Discharge to: Home. Patient was given the following educational materials: Abdominal Pain During , Activity Restriction During , Vaginal Bleeding During , First Trimester. Follow up with: ILIR BIRD Within 2 to 3 days; HARRY SIDDIQUI 10:20 AM; Return to emergency department Within As needed Return if condition worsens, especially if you have increased pain, vaginal bleding, dizziness or vomiting, etc.. Counseled: Patient, Regarding diagnosis, Regarding diagnostic results, Regarding treatment plan, Regarding prescription, Patient indicated understanding of instructions. documented in this encounter Plan of Treatment Not on file documented as of this encounter Visit Diagnoses Not on filedocumented in this encounter
--- OUTSIDE RECORDS SUMMARY | 2025-06-10 20:10 | XMS_ITS | Encounter Summary ---
Author Organization [employer] ([place], [place], [place], [place], [place]) Address [address] [place] [address] Care Team Providers Care Lithographic Proofer Name Role Phone Unavailable Primary Care Provider Unavailabl e Encounter Details Date Type Department Care Team (Late st Contact Info) Description 02/20/2020 Transcribed Document [facility] [place] [facility] [place] [address] ProviderAwa MD [address] [place], [place] [id number] Social History Tobacco Use Types Packs/Day Years Used Date Smoking Tobacco: Never Assessed Comments Unknown Sex and Gender Information Value Date Recorded Sex Assigned at Not on file Legal Sex Female 6:47 PM CDT Gender Identity Not on file Sexual Orientation Not on file documented as of this encounter Miscellaneous Notes * Cerner Conversion Note - Awa ProviderMD - 02/20/2020 10:49 AM CDT UM Authorization Entered On: 02/20/2020 10:49 EDT Performed On: 02/20/2020 10:49 EDT by Maira Krishnan Rn-Utilization Review Primary Insurance Authorization Authorization and Policy Numbers : Insurance 1 Health Plan: [employer]ICA[employer] Policy Number: [id number] Authorization Number: [id number] Insurance Primary Name : [employer]ICA[employer] Policy Number: [id number] Authorization Status-Primary : Admit approved Reference Number-Primary : [id number] Authorization Number-Primary : [id number] Authorized Service Begin Date-Primary : 02/16/2020 EDT Authorization Comments-Primary : Clinicals faxed via [employer] Historical Authorization Comments-Primary : Comment 1: Auth inititaed on Availity. Admit approved certified in total (Maira Krishnan Rn-Utilization Review 02/18/2020 09:27) Maira Krishnan Rn-Utilization Review - 02/20/2020 10:49 EDT documented in this encounter Plan of Treatment Not on file documented as of this encounter Visit Diagnoses Not on filedocumented in this encounter
--- OUTSIDE RECORDS SUMMARY | 2025-06-10 20:10 | XMS_ITS | Encounter Summary ---
Author Organization [facility] ([place], [place], [place], [place], [place]) Address [address] [place] [address] Care Team Providers Care Granulator Operator Name Role Phone Unavailable Primary Care Provider Unavailabl e Encounter Details Date Type Department Care Team (Late st Contact Info) Description 02/20/2020 Transcribed Document [facility] [place] [facility] [place] [address] ProviderAwa MD [address] [place], [place] [id number] Social History Tobacco Use Types Packs/Day Years Used Date Smoking Tobacco: Never Assessed Comments Unknown Sex and Gender Information Value Date Recorded Sex Assigned at Not on file Legal Sex Female 6:47 PM CDT Gender Identity Not on file Sexual Orientation Not on file documented as of this encounter Miscellaneous Notes * Cerner Conversion Note - Historical ProviderMD - 02/20/2020 12:01 AM CDT Solar Photovoltaic Crew Lead Details Entered On: 02/20/2020 0:01 EDT Performed On: 02/20/2020 0:01 EDT by MAREK ALMONTE RN Order Details Transport Mode Order Detail : Ambulatory Isolation Precautions Order Detail : Standard Precautions Order Detail : 0 IV Order Detail : 0 Oxygen Order Detail : 0 Nurse Collect Order Detail : 0 Lift/Transfer : Independent Central Line Order Detail : No Room Service : Appropriate Arterial Line : No MAREK ALMONTE RN - 02/20/2020 0:01 EDT documented in this encounter Plan of Treatment Not on file documented as of this encounter Visit Diagnoses Not on filedocumented in this encounter
--- OUTSIDE RECORDS SUMMARY | 2025-06-10 20:10 | XMS_ITS | Encounter Summary ---
Author Organization [email or web address] ([place], [place], [place], [place], [place]) Address [address] [place] [address] Care Team Providers Care Blueberry Grower Name Role Phone Unavailable Primary Care Provider Unavailabl e Encounter Details Date Type Department Care Team (Late st Contact Info) Description 02/20/2020 Transcribed Document [facility] [place] [facility] [place] [address] ProviderAwa MD [address], [place] [id number] Social History Tobacco Use Types Packs/Day Years Used Date Smoking Tobacco: Never Assessed Comments Unknown Sex and Gender Information Value Date Recorded Sex Assigned at Not on file Legal Sex Female 6:47 PM CDT Gender Identity Not on file Sexual Orientation Not on file documented as of this encounter Miscellaneous Notes * Cerner Conversion Note - Historical ProviderMD - 02/20/2020 6:00 PM CDT Pain Assessment Entered On: 02/21/2020 6:25 EDT Performed On: 02/20/2020 19:40 EDT by Yue Gao RN Intervention Information: acetaminophen Performed by HALIE WASSERMAN RN on 02/20/2020 18:40:00 EDT acetaminophen,1000mg Oral Pain Assessment Pain Assessment : Follow-up [...]
--- OUTSIDE RECORDS SUMMARY | 2025-06-10 20:10 | XMS_ITS | Encounter Summary ---
Author Organization [employer] ([place], [place], [place], [place], [place]) Address [address] [place] [address] Care Team Providers Care Parachute Harness Rigger Name Role Phone Unavailable Primary Care Provider Unavailabl e Encounter Details Date Type Department Care Team (Late st Contact Info) Description 08/29/2019 Transcribed Document [facility] [place] [facility] [address] ProviderAwa MD [address] [place], [place] [phone] Social History Tobacco Use Types Packs/Day Years Used Date Smoking Tobacco: Never Assessed Comments Unknown Sex and Gender Information Value Date Recorded Sex Assigned at Not on file Legal Sex Female 6:47 PM CDT Gender Identity Not on file Sexual Orientation Not on file documented as of this encounter Miscellaneous Notes * Cerner Conversion Note - Historical ProviderMD - 08/29/2019 5:22 PM GENERAL ASSEMBLER INSTALLER ED Triage Entered On: 08/29/2019 17:33 EST Performed On: 08/29/2019 17:31 EST by DARCY MCCONNELL SALSA DANCE INSTRUCTOR Triage Across the Room Chief Complaint : pt 15 wks preg, , hx fibroids, states had so spotting today light red, not soaked a pad yet, c/o light cramping, Triage Date/Time : 08/29/2019 17:31 EST DARCY MCCONNELL RN - 08/29/2019 17:31 EST DCP GENERIC CODE Tracking Acuity : 3 - Urgent Tracking Group : [facility] ED [place] DARCY MCCONNELL RN - 08/29/2019 17:31 EST Mode of Arrival : Ambulatory Transported to ED by : Private vehicle To Room Via : Ambulate Accompanied By : Unaccompanied ED Vital Signs : Document Height & Weight : Document ED Allergies : Document ED Reason for Visit : Document Construction Engineer Needed : No DARCY MCCONNELL RN - 08/29/2019 17:31 EST Infectious Disease History Physical contact outside [place] in the last 30 days : No Infectious Disease History : Chicken pox/Shingles Tuberculosis Symptoms : None DARCY MCCONNELL RN - 08/29/2019 17:31 EST Vital Signs ED Temperature Source : Oral Temperature Mode : Fahrenheit Temperature, Fahrenheit : 97.8 Deg F ED Pain : Yes Clinical Temperature, C : 36.6 Deg C Oxygen Therapy Mode : Room air Peripheral Pulse Rate : 81 bpm Respiratory Rate : 18 Breaths/Min Systolic Blood Pressure : 115 mmHg Diastolic Blood Pressure : 55 mmHg (LOW) Oxygen Saturation : 100 % DARCY MCCONNELL RN - 08/29/2019 17:31 EST Allergy (As Of: 08/29/2019 17:33:56 EST) Allergies (Active) sulfa drugs Estimated Onset Date: Unspecified ; Created By: SIMA WASSERMAN RN; Reaction Status: Active ; Category: Drug ; Substance: sulfa drugs ; Type: Allergy ; Updated By: SIMA WASSERMAN RN; Reviewed Date: 08/29/2019 17:33 EST Diagnosis Control ED (As Of: 08/29/2019 17:33:56 EST) Problems(Active) No Chronic Problems (Cerner :NKP ) Name of Problem: No Chronic Problems ; Recorder: SIMA WASSERMAN RN; Code: NKP ; Last Updated: 09/11/2016 22:13 EST ; Life Cycle Date: 09/11/2016 ; Life Cycle Status: Active ; Vocabulary: Roselia Diagnoses(Active) Vaginal bleeding - < 20 wks Date: 08/29/2019 ; Diagnosis Type: Reason For Visit ; Confirmation: Complaint of ; Clinical Dx: Vaginal bleeding - < 20 wks ; Classification: Medical ; Clinical Service: Emergency medicine ; Code: PNED ; Probability: 0 ; Diagnosis Code: [id number] ED Height and Weight Height Source : Stated Height Entry Format : [place] Height, Feet : 5 ft(Converted to: 152 cm, 60 Inch) Height, Inches : 4 Inch(Converted to: 0 ft 4 Inch, 10.16 cm) Clinical Height : 162.56 cm Weight Source, ED : Critical estimated dosing weight Weight Entry Format : [place] Weight, Pounds : 155 lb Clinical Dosing Weight : 70.45 kg Body Surface Area (BSA) : 1.76 m2 Body Mass Index : 26.7 kg/m2 (HI) [place] Body Weight (IBW) : 54.3 kg DARCY MCCONNELL RN - 08/29/2019 17:31 EST Pain Assessment Pain Assessment : Initial assessment Pain Scale Used : 0-10 Scale Location : Abdominal DARCY MCCONNELL RN - 08/29/2019 17:31 EST Pain Scale Intensity : 2 DARCY MCCONNELL RN - 08/29/2019 17:31 EST Image 4 - Images currently included in the form version of this document have not been included in the text rendition version of the form. documented in this encounter Plan of Treatment Not on file documented as of this encounter Visit Diagnoses Not on filedocumented in this encounter
--- OUTSIDE RECORDS SUMMARY | 2025-06-10 20:10 | XMS_ITS | Encounter Summary ---
Author Organization [employer] ([place], [place], [place], [place], [place]) Address [address] [place] [address] Care Team Providers Care Cutting And Boning Supervisor Name Role Phone Unavailable Primary Care Provider Unavailabl e Encounter Details Date Type Department Care Team (Late st Contact Info) Description 02/21/2020 Transcribed Document [facility] [place] [facility] [place] [address] ProviderAwa MD [address] [place], [place] [phone] Social History Tobacco Use Types Packs/Day Years Used Date Smoking Tobacco: Never Assessed Comments Unknown Sex and Gender Information Value Date Recorded Sex Assigned at Not on file Legal Sex Female 6:47 PM CDT Gender Identity Not on file Sexual Orientation Not on file documented as of this encounter Miscellaneous Notes * Cerner Conversion Note - Historical ProviderMD - 02/21/2020 12:00 AM CDT Pain Assessment Entered On: 02/21/2020 6:26 EDT Performed On: 02/21/2020 1:01 EDT by Yue Gao RN Intervention Information: acetaminophen Performed by Yue Gao RN on 02/21/2020 00:01:00 EDT acetaminophen,1000mg Oral Pain Assessment Pain Assessment [...]
--- OUTSIDE RECORDS SUMMARY | 2025-06-10 20:11 | XMS_ITS | Encounter Summary ---
Author Organization [employer] ([place], [place], [place], [place], [place]) Address [address] [place] [address] Care Team Providers Care Applications Developer Name Role Phone Unavailable Primary Care Provider Unavailabl e Encounter Details Date Type Department Care Team (Late st Contact Info) Description 02/21/2020 Transcribed Document [facility] [place] [address] ProviderAwa MD [address] [place], [place] [phone] Social History Tobacco Use Types Packs/Day Years Used Date Smoking Tobacco: Never Assessed Comments Unknown Sex and Gender Information Value Date Recorded Sex Assigned at Not on file Legal Sex Female 6:47 PM CDT Gender Identity Not on file Sexual Orientation Not on file documented as of this encounter Miscellaneous Notes * Cerner Conversion Note - Historical ProviderMD - 02/21/2020 6:00 AM CDT Pain Assessment Entered On: 02/21/2020 6:26 EDT Performed On: 02/21/2020 6:42 EDT by Yue Gao RN Intervention Information: ibuprofen Performed by Yue Gao RN on 02/21/2020 05:42:00 EDT ibuprofen,800mg Oral Pain Assessment Pain Assessment [...]
--- OUTSIDE RECORDS SUMMARY | 2025-06-10 20:11 | XMS_ITS | Encounter Summary ---
Author Organization [employer] ([place], [place], [place], [place], [place]) Address [address] [place] [address] Care Team Providers Care Drafting Layout Worker Name Role Phone Unavailable Primary Care Provider Unavailabl e Encounter Details Date Type Department Care Team (Late st Contact Info) Description 02/18/2020 Transcribed Document [facility] [place] [facility] [place] [address] ProviderAwa MD [address] [place] [id number] Social History Tobacco Use Types Packs/Day Years Used Date Smoking Tobacco: Never Assessed Comments Unknown Sex and Gender Information Value Date Recorded Sex Assigned at Not on file Legal Sex Female 6:47 PM CDT Gender Identity Not on file Sexual Orientation Not on file documented as of this encounter Miscellaneous Notes * Cerner Conversion Note - Awa ProviderMD - 02/18/2020 4:08 AM CDT Pain Assessment Entered On: 02/19/2020 7:06 EDT Performed On: 02/19/2020 2:54 EDT by Promise Woods RN Intervention Information: oxyCODONE Performed by Promise Woods RN on 02/19/2020 01:54:00 EDT oxyCODONE,10mg Oral,Pain (Severe 7-10) Pain Assessment Pain Assessment : Follow-up assessment Pain Scale Used : 0-10 Scale Assume Pain Present : Yes Location : Uterine Onset : Constant Quality : Aching, Guarding Pain Radiation : No Pain Worsened by : Movement Pain Improved by : Medication Pain Intervention, Drug : Medicated Pain Intervention, Non-Drug : Massage Promise Woods RN - 02/19/2020 7:05 EDT Pain Scale Intensity : 4 Promise Woods RN - 02/19/2020 7:05 EDT Image 4 - Images currently included in the form version of this document have not been included in the text rendition version of the form. documented in this encounter Plan of Treatment Not on file documented as of this encounter Visit Diagnoses Not on filedocumented in this encounter
--- OUTSIDE RECORDS SUMMARY | 2025-06-10 20:11 | XMS_ITS | Encounter Summary ---
Author Organization [employer] ([place], [place], [place], [place], [place]) Address [address] [place] [address] Care Team Providers Care Director Of Acquisition Marketing Name Role Phone Unavailable Primary Care Provider Unavailabl e Encounter Details Date Type Department Care Team (Late st Contact Info) Description 02/17/2020 Transcribed Document [facility] [place] [facility] [address] ProviderAwa MD [address] [place], [place] [phone] Social History Tobacco Use Types Packs/Day Years Used Date Smoking Tobacco: Never Assessed Comments Unknown Sex and Gender Information Value Date Recorded Sex Assigned at Not on file Legal Sex Female 6:47 PM CDT Gender Identity Not on file Sexual Orientation Not on file documented as of this encounter Miscellaneous Notes * Cerner Conversion Note - Historical ProviderMD - 02/17/2020 5:54 PM CDT Patient: ANDI CARRASCO Age: 34 Years Sex: Female : 1985 pt comfortable bp 140-150' ve /-1 gbs neg 39wks ghtn cont pit iol inadequate ctx mag Electronically signed by Jenniffer [facility] Conversion Complementary Health Therapists [employer]ner at 10/29/2022 4:54 PM CDT documented in this encounter Plan of Treatment Not on file documented as of this encounter Visit Diagnoses Not on filedocumented in this encounter
--- OUTSIDE RECORDS SUMMARY | 2025-06-10 20:11 | XMS_ITS | Encounter Summary ---
Author Organization [employer] ([place], [place], [place], [place], [place]) Address [address] [place] [address] Care Team Providers Care Sap Plant Maintenance Consultant Name Role Phone Unavailable Primary Care Provider Unavailabl e Encounter Details Date Type Department Care Team (Late st Contact Info) Description 02/21/2020 Transcribed Document [facility] [place] [facility] [place] [address] ProviderAwa MD [address] [place] [phone] Social History Tobacco Use Types Packs/Day Years Used Date Smoking Tobacco: Never Assessed Comments Unknown Sex and Gender Information Value Date Recorded Sex Assigned at Not on file Legal Sex Female 6:47 PM CDT Gender Identity Not on file Sexual Orientation Not on file documented as of this encounter Miscellaneous Notes * Cerner Conversion Note - Awa ProviderMD - 02/21/2020 1:26 PM CDT Patient: ANDI CARRASCO Age: 34 Years Sex: Female : 1985 Admit Date 02/17/2020 07:46 Discharge Date 02/21/2020 17:26 Primary Care Provider [place] FOREMAN PRIM DR Discharge Diagnosis delivery delivered 02/20/2020 O82 ICD-10-CM Arrested active phase of labor 02/20/2020 O62.1 ICD-10-CM Breast feeding status of mother 02/20/2020 Z39.1 ICD-10-CM Postoperative anemia due to acute blood loss 02/20/2020 D62 ICD-10-CM Single live 02/20/2020 Z37.0 ICD-10-CM Leiomyoma of uterus 02/20/2020 D25.9 ICD-10-CM Procedures Primary c/s Studies H&H 8.6/24.7 PLTS 150 Reason for Hospitalization IOL Hospital Course primary c/s with PP care Vital Signs Oxygen Settings (Last) VSS, Afebrile Physical Exam Pt has no c/o today, denies s/s PPH or PPD. Pt states she is breast feeding and states baby is doing well. Pt states she is ambulating and voiding without difficulty and states her pain is well controlled. General: Pt is AA&ox4, in NAD, wd/wn, responds appropriately CV: RRR without gallop or rub LUNGS: CTA, b/l A&P Breasts: soft, non tender ABD: soft, non tender, uterus is firm at 1 below uterine fibroid palpated right lateral to umbilicus MAEW, no peripheral edema Discharge Disposition Home Discharge Follow Up HARRY WATKINS MD-ELECTRIC TRIPPER MACHINE OPERATOR - 02:40 PM Discharge Medications (5) Active Colace 100 mg oral capsule 100 mg = 1 Cap, Oral, TID hydrocortisone-pramoxine 1%-1% rectal cream 1 Application, PRN, Rectal, Q4H lanolin topical ointment , PRN, Topical, See Comment 1 oral capsule 1 Cap, Oral, Daily Valtrex 500 mg oral tablet , Oral, Daily IB 800mg 1 po every 8 h ours as needed, #30 with 2 refills Percocet 1 po every 4-6 hours as needed, #20 with no refill Code Status No Code Status Order on Record Condition on Discharge Stable Consulting Physicians No Consulting Physician on Record. Current Diet Order No qualifying data available. Patient Discharge Summary Orders F/U sooner if problems Follow Up Labs/Studies None Pending Labs No Labs on Record Time Spent on Discharge < 30 minutes documented in this encounter Plan of Treatment Not on file documented as of this encounter Visit Diagnoses Not on filedocumented in this encounter
--- OUTSIDE RECORDS SUMMARY | 2025-06-10 20:11 | XMS_ITS | Encounter Summary ---
Author Organization [employer] ([place], [place], [place], [place], [place]) Address [address] [place] [address] Care Team Providers Care Mold Stamper And Repairer Name Role Phone Unavailable Primary Care Provider Unavailabl e Encounter Details Date Type Department Care Team (Late st Contact Info) Description 02/17/2020 Transcribed Document [facility] [place] [facility] [place] [address] ProviderAwa MD [address] [place], [place] [phone] Social History Tobacco Use Types Packs/Day Years Used Date Smoking Tobacco: Never Assessed Comments Unknown Sex and Gender Information Value Date Recorded Sex Assigned at Not on file Legal Sex Female 6:47 PM CDT Gender Identity Not on file Sexual Orientation Not on file documented as of this encounter Miscellaneous Notes * Cerner Conversion Note - Historical ProviderMD - 02/17/2020 3:31 PM CDT Patient: ANDI CARRASCO Age: 34 Years Sex: Female : 1985 pt comfortable s/p epidural bp 150'/90' fhr cat 1 ve 3.5/80/-2 mid position. arom copious clear fluid iupc placed. pt says she was told incr winter 38wks gbs neg cont pit iol for ghtn. will mag documented in this encounter Plan of Treatment Not on file documented as of this encounter Visit Diagnoses Not on filedocumented in this encounter
--- OUTSIDE RECORDS SUMMARY | 2025-06-10 20:11 | XMS_ITS | Encounter Summary ---
Author Organization [employer] ([place], [place], [place], [place], [place]) Address [address] [place] [address] Care Team Providers Care Topology Teacher Name Role Phone Unavailable Primary Care Provider Unavailabl e Encounter Details Date Type Department Care Team (Late st Contact Info) Description 02/18/2020 Transcribed Document [facility] [place] [address] ProviderAwa MD [address] [place], [place] [phone] Social History Tobacco Use Types Packs/Day Years Used Date Smoking Tobacco: Never Assessed Comments Unknown Sex and Gender Information Value Date Recorded Sex Assigned at Not on file Legal Sex Female 6:47 PM CDT Gender Identity Not on file Sexual Orientation Not on file documented as of this encounter Miscellaneous Notes * Cerner Conversion Note - Awa ProviderMD - 02/18/2020 10:00 PM CDT Pain Assessment Entered On: 02/19/2020 7:04 EDT Performed On: 02/18/2020 22:12 EDT by Promise Woods RN Intervention Information: ibuprofen Performed by Promise Woods RN on 02/18/2020 21:12:00 EDT ibuprofen,800mg Oral Pain Assessment Pain Assessment : Follow-up assessment Pain Scale Used : 0-10 Scale Assume Pain Present : Yes Location : Uterine Onset : Constant Quality : Aching, Guarding Pain Radiation : No Pain Worsened by : Movement Pain Improved by : Medication Pain Intervention, Drug : Medicated Pain Intervention, Non-Drug : Distraction Pain Improved by Intervention : Yes Promise Woods RN - 02/19/2020 7:03 EDT Pain Scale Intensity : 4 Promise Woods RN - 02/19/2020 7:03 EDT Image 4 - Images currently included in the form version of this document have not been included in the text rendition version of the form. documented in this encounter Plan of Treatment Not on file documented as of this encounter Visit Diagnoses Not on filedocumented in this encounter
--- OUTSIDE RECORDS SUMMARY | 2025-06-10 20:11 | XMS_ITS | Encounter Summary ---
Author Organization [employer] ([place], [place], [place], [place], [place]) Address [address] [place] [address] Care Team Providers Care Paper Coater Name Role Phone Unavailable Primary Care Provider Unavailabl e Encounter Details Date Type Department Care Team (Late st Contact Info) Description 02/21/2020 Transcribed Document [facility] [place] [facility] [place] [address] ProviderAwa MD [address] [place], [place] [address] Social History Tobacco Use Types Packs/Day Years Used Date Smoking Tobacco: Never Assessed Comments Unknown Sex and Gender Information Value Date Recorded Sex Assigned at Not on file Legal Sex Female 6:47 PM CDT Gender Identity Not on file Sexual Orientation Not on file documented as of this encounter Miscellaneous Notes * [employer]ner Conversion Note - Historical ProviderMD - 02/21/2020 5:00 AM CDT Chart Check - Review Order Profile Entered On: 02/21/2020 6:26 EDT Performed On: 02/21/2020 5:00 EDT by Yue Gao RN Chart Check Powerplans Initiated/Discontinued as Appropriate : Not applicable All Active Orders Reviewed : Yes Yue Gao RN - 02/21/2020 6:25 EDT documented in this encounter Plan of Treatment Not on file documented as of this encounter Visit Diagnoses Not on filedocumented in this encounter
--- OUTSIDE RECORDS SUMMARY | 2025-06-10 20:11 | XMS_ITS | Encounter Summary ---
Author Organization [employer] ([place], [place], [place], [place], [place]) Address [address] [place] [address] Care Team Providers Care Multimedia Journalist Name Role Phone Unavailable Primary Care Provider Unavailabl e Encounter Details Date Type Department Care Team (Late st Contact Info) Description 02/21/2020 Transcribed Document [facility] [place] [facility] [address] [place] [address] ProviderAwa MD [address] [place], [place] [id number] Social History Tobacco Use Types Packs/Day Years [...] Woodard MD - 02/21/2020 11:53 AM CDT [address] [address] ANDI ARTHUR CATRON :1985 Visit Time:02/16/2020 Your Visit Summary Your Care Team Admitting Physician - HARRY WATKINS MD-SURGICAL FIRST ASSISTANT Attending Physician - HARRY WATKINS MD-SURGICAL FIRST ASSISTANT Primary Care Physician - [place] FOREMAN [address] Referring Physician - HARRY WATKINS MD-SURGICAL FIRST ASSISTANT Your Diagnosis Arrested active phase of labor Breast feeding status of mother delivery delivered Leiomyoma of uterus Postoperative anemia due to acute blood loss Single live What to do next Instructions From Your Care Team Diet after Discharge: Resume usual diet as tolerated Drink at least 8-10 glasses of water a day Do not drink any alcoholic beverages Add 500 extra calories daily if Eat a 1-2 carbohydrate snack before or during Activity After Discharge:As tolerated,Rest and relax today,No strenuous activities,Nothing in the vagina for 6 weeks Lifting Restrictions: no lifting over 10 lbs Weight Bearing Restrictions:Full weight bearing Minimize Stair Climbing Discuss Exercise with your physician Driving after Discharge:No driving for 2 weeks Showering Bathing:May Shower,No tub bathing, soaking or swimming,_ Breast Care: Wear supportive bras as much as possible If nipple soreness occurs, rub colostrum (breastmilk) or a pea-sized amount of lanolin on nipples after feeding Practice self-breast exam monthly , Notify Provider of: Redness, swelling, or drainage from incision Foul smelling vaginal discharge Temperature over 100.4 degrees Fahrenheit Signs of depression or anxiety that makes it hard for you to care for yourself or your baby Weight up more than 2 pounds a day or more than 5 pounds in a week Incision pulling apart Pass blood clots larger than a golf ball Sharp pain or redness in your legs Painful urination or feeling like you have to go to the bathroom all the time Have breast pain with fever and chills Excessive vomiting or diarrhea Vaginal bleeding greater than 1 pad per hour Pain is worsening and current pain medication is not adequate When to go to the Emergency Room or call 911: Shortness of breath or chest pain Unable to reach provider Wound/Incision Care After Discharge: Keep operative site/wound site clean and dry Follow-Up Appointments Follow Up with HARRY WATKINS MD-SURGICAL FIRST ASSISTANT When 02/26/2020 02:40 PM EDT Where: [address] [place] [address]- Medications What How Much When Instructions Next Dose docusate (Colace 100 mg oral capsule) 1 Capsule(s) Oral Three Times A Day 02/21/2020 at 3pm hydrocortisone-pramoxine topical (hydrocortisone-pramoxine 1%-1% rectal cream) 1 Application(s) Rectal Every 4 Hours as needed for Perineal Comfort Measure lanolin topical (lanolin topical ointment) Topical See Comment as needed for Other (See Comment) multivitamin, ( 1 oral capsule) 1 Capsule(s) Oral Every Day 02/22/2020 valACYclovir (Valtrex 500 mg oral tablet) Oral Every Day Ibuprofen 800mg, 1 tab,oral, every 8 hours as needed for pain. Next dose due 02/21/2020 at 2pm Percocet 1 tab, oral, every 6 hours as needed for pain. Next dose due 02/21/2020 at 6:45pm Take your medications faithfully. Do NOT skip [...] Please dispose of unused and medications per your retail pharmacy guidance. Allergies sulfa drugs Immunizations This Visit No Immunizations Found Education Materials Choosing to breastfeed is one of the [...] milk are better able to meet your baby???s needs compared to formula. ??? Breast milk improves your baby's [...] well away from your nipple and your baby???s mouth. ??? Stroke your baby's lips gently [...] common for your baby to suck about 2???3 minutes in order to start the flow [...] outward (flanged). ??? Swallowing heard between every 3???4 sucks once your milk has started to [...] your finger into the corner of your baby???s mouth to break the suction and place [...] have increased in firmness, weight, and size 1???3 hours after feeding. ??? Breasts that are softer immediately after . ??? Increased milk volume, as well as a change in milk consistency and color by the fifth day of . ??? Nipples that are not sore, cracked, or bleeding. Signs that your baby is getting enough milk ??? Wetting at least 1???2 diapers during the first 24 hours after . ??? Wetting at least 5???6 diapers every 24 hours for the first week after . The urine should be clear or pale yellow by the age of 5 days. ??? Wetting 6???8 diapers every 24 hours as your baby [...] of life. ??? Average weight gain of 4???7 oz (113???198 g) per week after the age of [...] smacking lips, cooing, sighing, or squeaking. ??? Nqhk-dg-xxsbt movements and sucking on fingers or hands. [...] of age or younger) may breastfeed every 1???3 hours. ??? Newborns should not go without [...] able to be present during feedings. Your communication consultant can help you find a method [...] (sports bras). ??? Air-dry your nipples for 3???4 minutes after each feeding. ??? Use only [...] tender to the touch. Engorgement peaks within 3???5 days after you give . The following [...] Leave the ice on for 20 minutes, 2???3 times a day. ??? Make sure that your baby is latched on and positioned properly while . If engorgement persists after 48 hours of following these recommendations, contact your health care provider or a communication consultant. Overall health care recommendations while ??? Eat 3 healthy meals and 3 snacks every day. Well-nourished mothers who are need an additional 450???500 calories a day. You can meet this [...] provider before taking any medicines. These include tqdm-kuz-blpqdwo and prescription medicines as well as vitamins and herbal supplements. Some medicines that may be harmful to your baby can pass through breast milk. ??? It is possible to become while . If control is desired, ask your health care provider about options that will be safe while your baby. Where to find more information: [employer]: www.llli.org Contact a health care [...] and mothers. ??? Try to breastfeed your infant when he or she shows early signs [...] Talk with your health care provider or communication consultant if you have questions or you face problems as you breastfeed. This information is not intended to replace advice given to you by your health care provider. Make sure you discuss any questions you have with your health care provider. Document Released: 06/27/2006 Document Revised: 09/21/2018 Document Reviewed: 07/29/2017 [employer] Patient Education ?? 2020 [employer]. Care After Delivery This sheet gives you information about how to care for yourself from the time you deliver your baby to up to 6???12 weeks after delivery ( period). Your health care provider may also give you more specific instructions. If you have problems or questions, contact your health care provider. Follow these instructions at home: Medicines ??? Take rwpj-ojw-cioevxh and prescription medicines only as told by [...] keep your urine pale yellow. ? Take eujn-giq-anlmkpb or prescription medicines. ? Eat foods that [...] For most women, lochia stops completely by 4???6 weeks after delivery. Vaginal bleeding can vary [...] are not , your period should return 6???8 weeks after delivery. If you are , [...] hemorrhoids, try taking a warm sitz bath 2???3 times a day. A sitz bath is [...] with your health care provider or a communication consultant. ??? If you are not : [...] provider for a checkup within the first 3???6 weeks after delivery. Contact a health care [...] you deliver your baby to up to 6???12 weeks after delivery is called the period. [...] 06/24/2001 Document Revised: 02/14/2019 Document Reviewed: 02/14/2019 [employer] Patient Education ?? 2020 [employer]. acetaminophen and oxycodone (a SEET a MIN oh fen and OX i KOE done) Endocet 10/325, Endocet 2.5/325, Endocet 5/325, Endocet 7.5/325, Nalocet, Percocet, Primlev What is the most important information I should know about acetaminophen and oxycodone? MISUSE OF OPIOID MEDICINE CAN CAUSE ADDICTION, OVERDOSE, OR . Keep the medication in a place where others cannot get to it. An overdose of acetaminophen can damage your liver or cause . Call your doctor at once if you have pain in your upper stomach, loss of appetite, dark urine, or jaundice (yellowing of your skin or eyes). Taking opioid medicine during may cause life-threatening withdrawal symptoms in the . Fatal side effects can occur if you use opioid medicine with alcohol, or with other drugs that cause drowsiness or slow your breathing. Stop taking this medicine and call your doctor right away if you have skin redness or a rash that spreads and causes blistering and peeling. What is acetaminophen and oxycodone? Acetaminophen and oxycodone is a combination medicine used to relieve moderate to severe pain. Acetaminophen and oxycodone may also be used for purposes not listed in this medication guide. What should I discuss with my healthcare provider before taking acetaminophen and oxycodone? You should not use this medicine if you are allergic to acetaminophen or oxycodone, or if you have: ?? severe asthma or breathing problems; or ?? a blockage in your stomach or intestines. Tell your doctor if you have ever had: ?? breathing problems, sleep apnea; ?? liver disease; ?? a drug or alcohol addiction; ?? kidney disease; ?? a head injury or seizures; ?? urination problems; or ?? problems with your thyroid, pancreas, or gallbladder. If you use opioid medicine while you are , your baby could become dependent on the drug. This can cause life-threatening withdrawal symptoms in the baby after it is born. Babies born dependent on opioids may need medical treatment for several weeks. Do not breastfeed. This medicine can pass into breast milk and cause drowsiness, breathing problems, or in a nursing baby. How should I take acetaminophen and oxycodone? Follow all directions on your prescription label. Never take this medicine in larger amounts, or for longer than prescribed. An overdose can damage your liver or cause . Tell your doctor if you feel an increased urge to use more of this medicine. Never share this medicine with another person, especially someone with a history of drug abuse or addiction. MISUSE CAN CAUSE ADDICTION, OVERDOSE, OR . Keep the medicine in a place where others cannot get to it. Selling or giving away acetaminophen and oxycodone is against the law. Measure liquid medicine carefully. Use the dosing syringe provided, or use a medicine dose-measuring device (not a kitchen spoon). If you need surgery or medical tests, tell the doctor ahead of time that you are using this medicine. You should not stop using this medicine suddenly. Follow your doctor's instructions about tapering your dose. Store at room temperature away from moisture and heat. Keep track of your medicine. You should be aware if anyone is using it improperly or without a prescription. Do not keep leftover opioid medication. Just one dose can cause in someone using this medicine accidentally or improperly. Ask your pharmacist where to locate a drug take-back disposal program. If there is no take-back program, flush the unused medicine down the toilet. What happens if I miss a dose? Since this medicine is used for pain, you are not likely to miss a dose. Skip any missed dose if it is almost time for your next dose. Do not use two doses at one time. What happens if I overdose? Seek emergency medical attention or call the Poison Help line at . An overdose of acetaminophen and oxycodone can be fatal. The first signs of an acetaminophen overdose include loss of appetite, nausea, vomiting, stomach pain, sweating, and confusion or weakness. Later symptoms may include pain in your upper stomach, dark urine, and yellowing of your skin or the whites of your eyes. Overdose can also cause severe muscle weakness, pinpoint pupils, very slow breathing, extreme drowsiness, or coma. What should I avoid while taking acetaminophen and oxycodone? Avoid driving or operating machinery until you know how this medicine will affect you. Dizziness or drowsiness can cause falls, accidents, or severe injuries. Do not drink alcohol. Dangerous side effects or could occur. Ask a doctor or pharmacist before using any other medicine that may contain acetaminophen (sometimes abbreviated as APAP). Taking certain medications together can lead to a fatal overdose. What are the possible side effects of acetaminophen and oxycodone? Get emergency medical help if you have signs of an allergic reaction: hives; difficulty breathing; swelling of your face, lips, tongue, or throat. Opioid medicine can slow or stop your breathing, and may occur. A person caring for you should seek emergency medical attention if you have slow breathing with long pauses, blue colored lips, or if you are hard to wake up. In rare cases, acetaminophen may cause a severe skin reaction that can be fatal. This could occur even if you have taken acetaminophen in the past and had no reaction. Stop taking this medicine and call your doctor right away if you have skin redness or a rash that spreads and causes blistering and peeling. Call your doctor at once if you have: ?? noisy breathing, sighing, shallow breathing, breathing that stops during sleep; ?? a light-headed feeling, like you might pass out; ?? weakness, tiredness, fever, unusual bruising or bleeding; ?? confusion, unusual thoughts or behavior; ?? problems with urination; ?? liver problems--nausea, upper stomach pain, tiredness, loss of appetite, dark urine, jose-colored stools, jaundice (yellowing of the skin or eyes); or ?? low cortisol levels-- nausea, vomiting, loss of appetite, dizziness, worsening tiredness or weakness. Seek medical attention right away if you have symptoms of serotonin syndrome, such as: agitation, hallucinations, fever, sweating, shivering, fast heart rate, muscle stiffness, twitching, loss of coordination, nausea, vomiting, or diarrhea. Serious side effects may be more likely in older adults and those who are overweight, malnourished, or debilitated. Long-term use of opioid medication may affect fertility (ability to have children) in men or women. It is not known whether opioid effects on fertility are permanent. Common side effects include: ?? dizziness, drowsiness, feeling tired; ?? feelings of extreme happiness or sadness; ?? nausea, vomiting, stomach pain; ?? constipation; or ?? headache. This is not a complete list of side effects and others may occur. Call your doctor for medical advice about side effects. You may report side effects to FDA at 9-372-DKD-3861. What other drugs will affect acetaminophen and oxycodone? You may have breathing problems or withdrawal symptoms if you start or stop taking certain other medicines. Tell your doctor if you also use an antibiotic, antifungal medication, heart or blood pressure medication, seizure medication, or medicine to treat HIV or hepatitis C. Opioid medication can interact with many other drugs and cause dangerous side effects or . Be sure your doctor knows if you also use: ?? cold or allergy medicines, bronchodilator asthma/COPD medication, or a diuretic ('water pill'); ?? medicines for motion sickness, irritable bowel syndrome, or overactive bladder; ?? other narcotic medications--opioid pain medicine or prescription cough medicine; ?? a sedative like Valium--diazepam, alprazolam, lorazepam, Xanax, Klonopin, Versed, and others; ?? drugs that make you sleepy or slow your breathing--a sleeping pill, muscle relaxer, medicine to treat mood disorders or mental illness; ?? drugs that affect serotonin levels in your body--a stimulant, or medicine for depression, Parkinson's disease, migraine headaches, serious infections, or nausea and vomiting. This list is not complete. Other drugs may affect acetaminophen and oxycodone, including prescription and gbdm-btg-liwukno medicines, vitamins, and herbal products. Not all possible interactions are listed here. Where can I get more information? Your doctor or pharmacist can provide more information about acetaminophen and oxycodone. Remember, keep this and all other medicines out of the reach of children, never share your medicines with others, and use this medication only for the indication prescribed. Every effort has been made to ensure that the information provided by [employer]. [employer]') is accurate, up-to-date, and complete, but no guarantee is made to that effect. Drug information contained herein may be time sensitive. [employer] information has been compiled for use by healthcare practitioners and consumers in the [place] and therefore [employer] does not warrant that uses outside of the [place] are appropriate, unless specifically indicated otherwise. [employer] drug information does not endorse drugs, diagnose patients or recommend therapy. [employer] drug information is an informational resource designed to assist licensed healthcare practitioners in caring for their patients and/or to serve consumers viewing this service as a supplement to, and not a substitute for, the expertise, skill, knowledge and judgment of healthcare practitioners. The absence of a warning for a given drug or drug combination in no way should be construed to indicate that the drug or drug combination is safe, effective or appropriate for any given patient. [employer] does not assume any responsibility for any aspect of healthcare administered with the aid of information [employer] provides. The information contained herein is not intended to cover all possible uses, directions, precautions, warnings, drug interactions, allergic reactions, or adverse effects. If you have questions about the drugs you are taking, check with your doctor, nurse or pharmacist. Copyright 8152-0039 [employer]. Version: .. Revision Date: 08/01/2019. ibuprofen (EYE bue PROE fen) Advil, Genpril, IBU, Midol IB, Motrin IB, Proprinal, Smart Sense Children's Ibuprofen What is the most important information I should know about ibuprofen? Ibuprofen can increase your risk of fatal heart attack or stroke, especially if you use it group home or take high doses, or if you have heart disease. Do not use this medicine just before or after heart bypass surgery (coronary artery bypass graft, or CABG). Ibuprofen may also cause stomach or intestinal bleeding, which can be fatal. These conditions can occur without warning while you are using ibuprofen, especially in older adults. What is ibuprofen? Ibuprofen is a nonsteroidal anti-inflammatory drug (NSAID). Ibuprofen works by reducing hormones that cause inflammation and pain in the body. Ibuprofen is used to reduce fever and treat pain or inflammation caused by many conditions such as headache, toothache, back pain, arthritis, menstrual cramps, or minor injury. This medicine is used in adults and children who are at least 6 months old. Ibuprofen may also be used for purposes not listed in this medication guide. What should I discuss with my healthcare provider before taking ibuprofen? Ibuprofen can increase your risk of fatal heart attack or stroke, especially if you use it group home or take high doses, or if you have heart disease. Even people without heart disease or risk factors could have a stroke or heart attack while taking this medicine. Do not use this medicine just before or after heart bypass surgery (coronary artery bypass graft, or CABG). Ibuprofen may also cause stomach or intestinal bleeding, which can be fatal. These conditions can occur without warning while you are using ibuprofen, especially in older adults. You should not use ibuprofen if you are allergic to it, or if you have ever had an asthma attack or severe allergic reaction after taking aspirin or an NSAID. Ask a doctor or pharmacist if it is safe for you to take this medicine if you have: ?? heart disease, high blood pressure, high cholesterol, diabetes, or if you smoke; ?? a history of heart attack, stroke, or blood clot; ?? a history of stomach ulcers or bleeding; ?? asthma; ?? liver or kidney disease; ?? fluid retention; or ?? a connective tissue disease such as Marfan syndrome, Sjogren's syndrome, or lupus. Taking ibuprofen during the last 3 months of may harm the unborn baby. Do not use this medicine without a doctor's advice if you are . It is not known whether ibuprofen passes into breast milk or if it could affect a nursing baby. Ask a doctor before using this medicine if you are . Do not give ibuprofen to a child younger than 2 years old without the advice of a doctor. How should I take ibuprofen? Use exactly as directed on the label, or as prescribed by your doctor. Do not use in larger amounts or for longer than recommended. Use the lowest dose that is effective in treating your condition. Do not take more than your recommended dose. An ibuprofen overdose can damage your stomach or intestines. The maximum amount of ibuprofen for adults is 800 milligrams per dose or 3200 mg per day (4 maximum doses). Use only the smallest amount of ibuprofen needed to get relief from your pain, swelling, or fever. A child's dose of ibuprofen is based on the age and weight of the child. Carefully follow the dosing instructions provided with children's ibuprofen for the age and weight of your child. Ask a doctor or pharmacist if you have questions. Take ibuprofen with food or milk to lessen stomach upset. Shake the oral suspension (liquid) well just before you measure a dose. Measure liquid medicine with the dosing syringe provided, or with a special dose-measuring spoon or medicine cup. If you do not have a dose-measuring device, ask your pharmacist for one. The ibuprofen chewable tablet must be chewed before you swallow it. If you use this medicine long-term, you may need frequent medical tests. Store at room temperature away from moisture and heat. Do not allow the liquid medicine to freeze. Read all patient information, medication guides, and instruction sheets provided to you. Ask your doctor or pharmacist if you have any questions. What happens if I miss a dose? Since ibuprofen is used when needed, you may not be on a dosing schedule. If you are on a schedule, use the missed dose as soon as you remember. Skip the missed dose if it is almost time for your next scheduled dose. Do not use extra medicine to make up the missed dose. What happens if I overdose? Seek emergency medical attention or call the Poison Help line at . Overdose symptoms may include nausea, vomiting, stomach pain, drowsiness, black or bloody stools, coughing up blood, shallow breathing, fainting, or coma. What should I avoid while taking ibuprofen? Avoid drinking alcohol. It may increase your risk of stomach bleeding. Avoid taking aspirin unless your doctor tells you to. Avoid taking ibuprofen if you are taking aspirin to prevent stroke or heart attack. Ibuprofen can make aspirin less effective in protecting your heart and blood vessels. If you must use both medications, take the ibuprofen at least 8 hours before or 30 minutes after you take the aspirin (non-enteric coated form). Ask a doctor or pharmacist before using any cold, allergy, or pain medicine. Many medicines available over the counter contain aspirin or other medicines similar to ibuprofen. Taking certain products together can cause you to get too much of this type of medication. Check the label to see if a medicine contains aspirin, ibuprofen, ketoprofen, or naproxen. What are the possible side effects of ibuprofen? Get emergency medical help if you have signs of an allergic reaction: sneezing, runny or stuffy nose; wheezing or trouble breathing; hives; swelling of your face, lips, tongue, or throat. Get emergency medical help if you have signs of a heart attack or stroke: chest pain spreading to your jaw or shoulder, sudden numbness or weakness on one side of the body, slurred speech, leg swelling, feeling short of breath. Stop using ibuprofen and call your doctor at once if you have: ?? changes in your vision; ?? shortness of breath (even with mild exertion); ?? swelling or rapid weight gain; ?? the first sign of any skin rash, no matter how mild; ?? signs of stomach bleeding--bloody or tarry stools, coughing up blood or vomit that looks like coffee grounds; ?? liver problems--nausea, upper stomach pain, itching, tired feeling, flu-like symptoms, loss of appetite, dark urine, jose-colored stools, jaundice (yellowing of the skin or eyes); ?? kidney problems--little or no urinating, painful or difficult urination, swelling in your feet or ankles, feeling tired or short of breath; ?? low red blood cells (anemia)--pale skin, feeling light-headed or short of breath, rapid heart rate, trouble concentrating; or ?? severe skin reaction--fever, sore throat, swelling in your face or tongue, burning in your eyes, skin pain followed by a red or purple skin rash that spreads (especially in the face or upper body) and causes blistering and peeling. Common side effects may include: ?? nausea, vomiting, gas; ?? bleeding; or ?? dizziness, headache. This is not a complete list of side effects and others may occur. Call your doctor for medical advice about side effects. You may report side effects to FDA at 4-396-BXG-8282. What other drugs will affect ibuprofen? Ask your doctor before using ibuprofen if you take an antidepressant such as citalopram, escitalopram, fluoxetine (Prozac), fluvoxamine, paroxetine, sertraline (Zoloft), trazodone, or vilazodone. Taking any of these medicines with an NSAID may cause you to bruise or bleed easily. Ask a doctor or pharmacist if it is safe for you to use ibuprofen if you are also using any of the following drugs: ?? cyclosporine; ?? pemetrexed; ?? lithium; ?? methotrexate; ?? a blood thinner (warfarin, Coumadin, Jantoven); ?? heart or blood pressure medication, including a diuretic or 'water pill'; or ?? steroid medicine (such as prednisone). This list is not complete. Other drugs may interact with ibuprofen, including prescription and [id number] medicines, vitamins, and herbal products. Not all possible interactions are listed in this medication guide. Where can I get more information? Your pharmacist can provide more information about ibuprofen. Remember, keep this and all other medicines out of the reach of children, never share your medicines with others, and use this medication only for the indication prescribed. Every effort has been made to ensure that the information provided by [employer]') is accurate, up-to-date, and complete, but no guarantee is made to that effect. Drug information contained herein may be time sensitive. [employer] information has been compiled for use by healthcare practitioners and consumers in the [place] and therefore [employer] does not warrant that uses outside of the [place] are appropriate, unless specifically indicated otherwise. [employer] drug information does not endorse drugs, diagnose patients or recommend therapy. [employer] drug information is an informational resource designed to assist licensed healthcare practitioners in caring for their patients and/or to serve consumers viewing this service as a supplement to, and not a substitute for, the expertise, skill, knowledge and judgment of healthcare practitioners. The absence of a warning for a given drug or drug combination in no way should be construed to indicate that the drug or drug combination is safe, effective or appropriate for any given patient. [employer] does not assume any responsibility for any aspect of healthcare administered with the aid of information [employer] provides. The information contained herein is not intended to cover all possible uses, directions, precautions, warnings, drug interactions, allergic reactions, or adverse effects. If you have questions about the drugs you are taking, check with your doctor, nurse or pharmacist. Copyright 1654-6583 [employer]. Version: 21.. Revision Date: 07/23/2019. Emergency Awareness and Preventative Care STROKE is [...] Assistance with quitting is available by contacting 4-218-CYDV-NOW. This is a free resource providing counseling, support, and referral. Or you may contact your personal physician. National Suicide Prevention Lifeline: The National Suicide Prevention [...] and how to prevent infections, visit www.cdc.gov/sepsis. Test Results Laboratory or Other Results This Visit (last charted value for your 02/16/2020 visit) Hematology 02/20/2020 4:00 AM WBC: 17.2 K/uL -- Normal range between ( 3.9 and 10.0 ) RBC: 2.88 Million/uL -- Normal range between ( 3.93 and 5.22 ) Hct: 24.7 % -- Normal range between ( 34.1 and 44.9 ) Hgb: 8.6 Gram/dL -- Normal range between ( 11.2 and 15.7 ) Platelet Count: 150 K/uL -- Normal range between ( 163 and 369 ) MCH: 29.9 pg -- Normal range between ( 25.6 and 32.2 ) MCHC: 34.8 Gram/dL -- Normal range between ( 32.3 and 36.5 ) MCV: 85.8 fL -- Normal range between ( 79.0 and 94.8 ) Slide Review: No Eos %: 3.4 % -- Normal range between ( 1.0 and 7.0 ) Runnels #: 0.99 K/uL -- Normal range between ( 0.24 and 0.82 ) Eos #: 0.59 K/uL -- Normal range between ( 0.04 and 0.54 ) Runnels %: 5.8 % -- Normal range between ( 4.7 and 12.5 ) Baso %: 0.4 % -- Normal range between ( 0.0 and 1.0 ) Baso #: 0.07 K/uL -- Normal range between ( 0.01 and 0.08 ) RDW: 13.4 % -- Normal range between ( 11.6 and 14.4 ) Neut %: 75.9 % -- Normal range between ( 34.0 and 71.0 ) Neut #: 13.03 K/uL -- Normal range between ( 1.56 and 6.13 ) Lymph %: 13.3 % -- Normal range between ( 19.3 and 53.0 ) Lymph #: 2.28 K/uL -- Normal range between ( 1.18 and 3.74 ) MPV: 11.9 fL -- Normal range between ( 9.4 and 12.4 ) IG#: 0 x10(3)/uL IG%: 1 % -- Normal range between ( 0 and 1 ) Urinalysis 02/16/2020 5:08 PM Ur RBC: None Seen Urine Nitrite: Negative Urine Leukocyte Esterase: Negative Urine Appearance: Clear Urine Glucose Dipstick: Negative Urine Blood Dipstick: Negative Urine Urobilinogen Dipstick: 0.2 EU/dL -- Normal range between ( 0.2 and 1.0 ) Urine Protein Dipstick: Negative Ur Bacteria: None Seen Ur Squamous Epithelial Cells: 10-20 /HPF Urine Color: Yellow Ur WBC: 0-2 /HPF Urine Ketones Dipstick: Negative Urine pH Dipstick: 7.0 -- Normal range between ( 6.0 and 8.0 ) Urine Bilirubin Dipstick: Negative Urine Specific Hamer: 1.004 -- Normal range between ( 1.005 and 1.030 ) U[facility] Type.: [facility] 02/19/2020 9:03 PM TRANSFUSED: TRANSFUSED 02/19/2020 5:12 AM RBC Product Ready: RBC Ready # of Units: 2 02/16/2020 7:04 PM ABO/Rh: O POS Antibody Screen (Tube): Negative ABSC Crossmatch: Computer XM OK General Chemistry 02/19/2020 3:36 AM Creatinine Level: 1.17 mg/dL -- Normal range between ( 0.55 and 1.02 ) Sodium Level: 136 mmol/L -- Normal range between ( 136 and 146 ) Potassium Level: 3.2 mmol/L -- Normal range between ( 3.5 and 5.1 ) Chloride Level: 103 mmol/L -- Normal range between ( 102 and 112 ) Carbon Dioxide Level: 24 mmol/L -- Normal range between ( 21 and 32 ) Anion Gap: 12 -- Normal range between ( 9 and 20 ) Bilirubin Total: 0.4 mg/dL -- Normal range between ( 0.2 and 1.3 ) A/G Ratio: 0.7 -- Normal range between ( 1.1 and 2.5 ) ALT: 12 Units/Liter -- Normal range between ( 12 and 78 ) AST: 15 Units/Liter -- Normal range between ( 5 and 37 ) Globulin: 2.5 Gram/dL -- Normal range between ( 1.5 and 4.5 ) Alk Phos: 106 Units/Liter -- Normal range between ( 27 and 136 ) Bun/Creatinine: 15.4 -- Normal range between ( 8.0 and 20.0 ) Calcium Level: 9.6 mg/dL -- Normal range between ( 8.5 and 10.1 ) eGFR : >60 mL/min/1.73m2 eGFR NonAfrican: 53 mL/min/1.73m2 Glucose Level: 107 mg/dL -- Normal range between ( 74 and 106 ) Blood Urea Nitrogen: 18 mg/dL -- Normal range between ( 7 and 22 ) Protein Total: 4.3 Gram/dL -- Normal range between ( 6.4 and 8.2 ) Albumin Level: 1.8 Gram/dL -- Normal range between ( 3.4 and 5.0 ) 02/16/2020 5:37 PM Lactate Dehydrogenase: 191 Units/Liter -- Normal range between ( 84 and 246 ) Uric Acid: 4.5 mg/dL -- Normal range between ( 2.6 and 6.0 ) Coagulation 02/19/2020 3:36 AM Fibrinogen Level: 378 mg/dL -- Normal range between ( 187 and 446 ) INR: 1.0 -- Normal range between ( 0.9 and 1.1 ) PTT: 25.4 Second(s) -- Normal range between ( 24.2 and 31.8 ) PT: 10.0 Second(s) -- Normal range between ( 9.6 and 11.5 ) Toxicology 02/16/2020 5:08 PM UDS Amp: Negative UDS Lor: Negative UDS Benzo: Negative UDS James: Negative UDS Meth: Negative UDS Opi: Negative UDS Oxy: Negative UDS PCP: Negative UDS TCA: Negative UDS THC: Negative Buprenorphine Screen, Urine: Negative Heroin Metab (6AM) by LC-MS/MS, Urine: Negative SpGravity, Urine: 1.002 Propoxyphene, Urine: Negative UDS pH: 7.2 UDS Creatinine, Toxicology: 15.4 mg/dL Computed Tomography 02/19/2020 4:[address] Abdomen Pelvis W: CT Abdomen Pelvis W Patient Name:ANDI ARTHUR I have received and understand this information and was given the opportunity to ask questions. Patient/Administrative Support Technician Name: Patient/Administrative Support Technician Signature: Relationship to Patient: Clinician/Hospital Administrative Support Technician Signature: Date: Electronically signed by Antionette Abad [employer] Launch And Recovery Technician Roselia at 10/29/2022 4:58 PM CDT documented in this encounter Plan of Treatment Not on file documented as of this encounter Visit Diagnoses Not on filedocumented in this encounter
[2025-06-10] MEDS: TET/DIPHTH/PERT-ADULT 0.5ML SYRINGE 0.5 ML IM (20:16)
[2025-06-10] MEDS: CLINDAMYCIN 150MG CAPSULE 300 MG PO (20:17)
--- NOTE | 2025-06-10 20:26 | PC.NURSE ---
L bottom of foot cleaned with betadine and sterile gauze. PT tolerated well
[2025-06-10 20:32] VITALS: BP 150/94; PULSE 95; RESP 18; TEMP 36.8; O2SAT 18
--- NOTE | 2025-06-13 14:36 | PEERSUPPORT ---
Peer Support Note Patient Information Patient Information: DOS: 06/11/2025 Ps follow up: Phone call No answer, no option of voicemail.
== END 2025-06-10 20:37 | disposition home or self-care (01) ==
LOC: ER 20:08
PROVIDERS: Emergency Provider Student in an Organized Health Care Education/Training Program; PCP Emergency Medicine
DX: S91.332A Puncture wound without foreign body, left foot, initial encounter (principal); W45.0XXA Nail entering through skin, initial encounter
CPT/HCPCS: 90471; 90715; 99283; 99284